=== PATIENT | female | born 1950 | race Caucasian/White ===

== ENCOUNTER 2019-08-10 12:09 | Inpatient (IN) | payer MEDICARE ==
[~2019-08-10] VITALS: Ht 162.6 cm; Wt 70.8 kg
[2019-08-10 12:00] VITALS: BP 110/58
[2019-08-10] MEDS ORDERED: BUPROPION HCL75 MG PO (12:55)
[2019-08-10] MEDS ORDERED: AUGMENTIN 875-11 TAB PO (12:55)
[2019-08-10] MEDS ORDERED: MOBIC7.5 MG PO (12:56)
[2019-08-10 13:16] VITALS: BP 110/58; BMI 25.8
[2019-08-10 13:28] LABS: CALC OSMOLALITY 265 mosm/kg (275-300); CALCIUM 8.6 mg/dL (8.5-10.1); CARBON DIOXIDE 24.5 mmol/L (21.0-32.0); CHLORIDE - SERUM 100 mmol/L (98-107); CREATININE - SERUM 0.7 mg/dL (0.6-1.3); GLUCOSE 100 mg/dL (74-106); POTASSIUM - SERUM 4.4 mmol/L (3.5-5.1); SODIUM 134 mmol/L (136-145); UREA NITROGEN 7 mg/dL (7-18); eGFR NON AFRICAN AMERICAN 88 mL/min (90-120)
[2019-08-10 13:34] LABS: ALBUMIN 2.4 g/dL (3.4-5.0); ALKALINE PHOSPHATASE 88 U/L (30-120); ALT (SGPT) 18 U/L (10-68); BILIRUBIN - TOTAL 0.31 mg/dL (0.2-1.3); PROTEIN - SERUM 6.2 g/dL (6.4-8.2)
[2019-08-10 13:44] LABS: HEMATOCRIT 32.2 % (36.0-48.0); HEMOGLOBIN 10.3 g/dL (12-16); MCH 30.6 pg (26.0-34.0); MCV 95.5 fL (80.0-100.0); PLATELET COUNT 502 10x3/uL (130-400); RBC 3.37 10x6/uL (4.00-5.40); RDW 14.5 % (11.5-14.5); WBC 26.1 10x3/uL (4.8-10.8)
[2019-08-10 14:34] LABS: LYMPHOCYTES 13 % (15-50); MONOCYTES 10 % (2-11); NEUTROPHILS 77 % (40-80); PLATELET ESTIMATE INCREASED
[2019-08-10 16:00] VITALS: BP 109/38
[2019-08-10 18:01] LABS: % SATURATION 7 % (15-55); IRON 13 ug/dl (35-150); TOTAL IRON BIND CAPACITY 164 ug/dl (260-445); UNSAT IRON BIND CAPACITY 151 ug/dl (150-375)
[2019-08-10 18:35] LABS: BILIRUBIN NEGATIVE (NEGATIVE); GLUCOSE NEGATIVE (NEGATIVE); KETONE NEGATIVE (NEGATIVE); NITRITE NEGATIVE (NEGATIVE); SPECIFIC GRAVITY 1.005 (1.005-1.020); UROBILINOGEN NORMAL (NORMAL)
[2019-08-10 18:37] LABS: BACTERIA FEW /hpf (NEGATIVE); RED CELLS - URINE RARE /hpf (0-5); WHITE CELLS - URINE 0-5 /hpf (NEGATIVE)
[2019-08-10 20:00] VITALS: BP 109/61
--- NOTE | 2019-08-10 20:00 | NUR ---
PATIENT IN BED WITH EYES OPEN. NO S/S OF ACUTE DISTRESS. NO C/O AT THIS TIME. PATIENT HAS A LEFT FOREARM, NORMAL SALINE @ 20 ML/HR. IV IS PATENT WITHOUT REDNESS, SWELLING, OR TENDERNESS. PATIENT IS WEAK AND NEEDS ASSISTANCE GETTING UP OUT OF BED, BUT CAN WALK WITH STANDBY ASSIST. PATIENT A RED SPOT ON RIGHT LEG BEHIND KNEE. PATIENT IS STANDBY ASSIST TO THE BATHROOM. CALL LIGHT WITHIN REACH. WILL CONTINUE TO MONITOR.
--- NOTE | 2019-08-11 02:12 | NUR ---
I have reviewed this patient and I concur with the Shift Assessment completed by the Licensed Practical Nurse today this shift.
[2019-08-11 04:00] VITALS: BP 96/41
[2019-08-11 07:13] LABS: HEMATOCRIT 30.2 % (36.0-48.0); HEMOGLOBIN 9.5 g/dL (12-16); MCH 30.1 pg (26.0-34.0); MCHC 31.5 g/dL (31.0-37.0); MCV 95.6 fL (80.0-100.0); MEAN PLATELET VOLUME 8.9 fL (7.4-10.4); PLATELET COUNT 479 10x3/uL (130-400); RBC 3.16 10x6/uL (4.00-5.40); RDW 14.4 % (11.5-14.5)
[2019-08-11 07:31] LABS: CALC OSMOLALITY 271 mosm/kg (275-300); CALCIUM 8.6 mg/dL (8.5-10.1); CARBON DIOXIDE 25.7 mmol/L (21.0-32.0); CHLORIDE - SERUM 104 mmol/L (98-107); CREATININE - SERUM 0.6 mg/dL (0.6-1.3); GLUCOSE 106 mg/dL (74-106); MAGNESIUM - SERUM 1.9 mg/dL (1.8-2.4); PHOSPHOROUS 2.8 mg/dL (2.5-4.9); SODIUM 137 mmol/L (136-145); THYROID STIMULATING HORMONE 0.82 uIU/mL (0.36-3.74); UREA NITROGEN 6 mg/dL (7-18); eGFR NON AFRICAN AMERICAN > 90 mL/min (90-120)
[2019-08-11 07:37] LABS: POTASSIUM - SERUM 3.7 mmol/L (3.5-5.1)
[2019-08-11 08:00] VITALS: BP 115/59
[2019-08-11 09:31] LABS: HYPOCHROMASIA OCC; LYMPHOCYTES 12 % (15-50); MONOCYTES 9 % (2-11); NEUTROPHILS 79 % (40-80); PLATELET ESTIMATE INCREASED; ROULEAUX OCC
--- NOTE | 2019-08-11 09:44 | NUR ---
PT SUPINE IN BED UPON ENTERING. ALERT AND ORIENTED X4. MEDICATION GIVEN AT THIS TIME, NO DIFFICULTIES. ASSESSMENT PERFORMED. PT DENIES ANY NEEDS. BED IN LOWEST POSITION, BED RAILS X2, CALL LIGHT WITHIN REACH. WILL CONTINUE TO MONITOR.
--- NOTE | 2019-08-11 11:20 | NUR ---
REMOVED IF FROM RIGHT WRIST DUE TO INFILTRATION. DC WIT HCATHETER TIP INTACT, TOLERATED WELL. COVERED SITE WITH 2X2'S AND TAPE. FAMILY AT BEDSIDE. DENIES ANY NEEDS. WILL RESITE IV. WILL CONTINUE TO MONITOR.
[2019-08-11 12:00] VITALS: BP 104/61
--- NOTE | 2019-08-11 14:33 | NUR ---
2 ATTEMPTS AT RESTARTING IV, UNSUCCESSFUL. WILL HAVE ANOTHER NURSE MAKE AN ATTEMPT. NO IV MEDICATIONS UNTIL 1700. RESTING COMFORTABLY IN BED, DENIES ANY NEEDS. WILL CONTINUE TO MONITOR.
--- NOTE | 2019-08-11 15:46 | NUR ---
MCKENZIE FELIX, STARTED NEW IV TO THE LEFT FOREARM, FLUIDS RUNNING.
[2019-08-11 16:00] VITALS: BP 109/44
--- NOTE | 2019-08-11 17:11 | NUR ---
HUNG IV ANTIBIOTICS, PRN TYLENOL FOR FEVER AND PRN MORPHINE FOR PAIN IN LEG AND BACK. PT IS RESTING COMFORTABLY IN BED. WILL SPIKE AND RUN IRON WHEN ABX IS COMPLETE. PT DENIES ANY NEEDS AT THIS TIME. BED IN LOWEST POSITION, BED RAILS X2, CALL LIGHT WITHIN REACH. WILL CONTINUE TO MONITOR.
--- NOTE | 2019-08-11 17:40 | NUR ---
I have reviewed this patient and I concur with the Shift Assessment completed by the Licensed Practical Nurse today this shift.
[2019-08-11 20:00] VITALS: BP 105/50
--- NOTE | 2019-08-11 20:00 | NUR ---
PATIENT RESTING IN BED WATCHING TV. NO ACUTE S/S OF DISTRESS. NO C/O AT THIS TIME. PATIENT HAS A LEFT FOREARM NORMAL SALINE @ 75 ML/HR. IV IS PATENT WITHOUT REDNESS, SWELLING, OR TENDERNESS. PATIENT HAS A REDENED AREA ON THE BACK OF THE RIGHT LEG. PATIENT STATES THAT "I FEEL MUCH BETTER THAN I DID YESTERDAY." PATIENT IS UP ADLIB TO THE BATHROOM. CALL LIGHT WITHIN REACH. WILL CONTINUE TO MONITOR.
--- NOTE | 2019-08-12 00:09 | NUR ---
I have reviewed this patient and I concur with the Shift Assessment completed by the Licensed Practical Nurse today this shift.
[2019-08-12 06:09] LABS: HAPTOGLOBIN 478 mg/dL (37-355)
[2019-08-12 06:53] LABS: BASOPHILS 0.1 % (0-2); EOSINOPHILS 0.5 % (0-7); HEMATOCRIT 29.3 % (36.0-48.0); HEMOGLOBIN 9.2 g/dL (12-16); IMMATURE GRANULOCYTES 0.8 % (0-5); LYMPHOCYTES 6.3 % (15-50); MCH 29.8 pg (26.0-34.0); MCHC 31.4 g/dL (31.0-37.0); MCV 94.8 fL (80.0-100.0); MEAN PLATELET VOLUME 8.8 fL (7.4-10.4); MONOCYTES 8.6 % (2-11); NEUTROPHILS 83.7 % (40-80); PLATELET COUNT 439 10x3/uL (130-400); RBC 3.09 10x6/uL (4.00-5.40); RDW 14.2 % (11.5-14.5); WBC 17.5 10x3/uL (4.8-10.8)
[2019-08-12 07:18] LABS: CALC OSMOLALITY 274 mosm/kg (275-300); CALCIUM 8.4 mg/dL (8.5-10.1); CARBON DIOXIDE 24.9 mmol/L (21.0-32.0); CHLORIDE - SERUM 106 mmol/L (98-107); CREATININE - SERUM 0.5 mg/dL (0.6-1.3); GLUCOSE 104 mg/dL (74-106); MAGNESIUM - SERUM 1.8 mg/dL (1.8-2.4); POTASSIUM - SERUM 3.5 mmol/L (3.5-5.1); SODIUM 139 mmol/L (136-145); eGFR NON AFRICAN AMERICAN > 90 mL/min (90-120)
[2019-08-12 07:20] LABS: UREA NITROGEN 4 mg/dL (7-18)
[2019-08-12 08:00] VITALS: BP 129/61
--- NOTE | 2019-08-12 09:18 | NUR ---
PT ALERT AND ORIENTED X4 UPON ENTERING. VITALS ASSESSED, VSS. MEDICATION GIVEN, NO DIFFICULTIES. PT RESTING COMFORTABLY DENIES ANY NEEDS. BED IN LOWEST POSITION, BED RAILS X2, CALL LIGHT WITHIN REACH. WILL CONTINUE TO MONITOR.
[2019-08-12 10:41] VITALS: BP 129/61; BP 96/47
--- NOTE | 2019-08-12 11:51 | NUR ---
ADMINISTERED PRN MORPHINE FOR COMPLAINT OF BACK/LEG PAIN. RESTING IN BED ON SIDE. DENIES ANY NEEDS. BED IN LOWEST POSITION, BED RAILS X2, CALL LIGHT WITHIN REACH. WILL CONTINUE TO MONITOR.
[2019-08-12 12:50] VITALS: BP 122/62
--- NOTE | 2019-08-12 16:19 | NUR ---
I have reviewed this patient and I concur with the Shift Assessment completed by the Licensed Practical Nurse today this shift.
--- NOTE | 2019-08-12 17:04 | NUR ---
ADMINISTERED MEDICATIONS, NO DIFFICULTIES. PRN TYLENOL FOR FEVER OF 102. PT REPORTS FEELING FINE, NO PAIN OR DISCOMFORT. VERY ASSYMPTOMATIC WITH FEVER. DENIES ANY OTHER NEEDS. WILL CONTINUE TO MONITOR.
[2019-08-12 17:25] VITALS: BP 118/68
[2019-08-12 20:00] VITALS: BP 147/78
--- NOTE | 2019-08-12 20:00 | NUR ---
PATIENT RESTING IN BED WITH AT BEDSIDE. MO S/S OF ACUTE DISTRESS. NO C/O AT THIS TIME. PATIENT HAS LEFT FOREARM, NORMAL SALINE @ 75 ML/HR. IV IS PATENT WITHOUT REDNESS, SWELLING, OR TENDERNESS. PATIENT HAS REDDENED AREA BEHIND THE RIGHT KNEE. PATIENT IS UP ADLIB TO THE BATHROOM. CALL LIGHT WITHIN REACH. WILL CONTINUE TO MONITOR.
[2019-08-13] VITALS: BP 133/66
--- NOTE | 2019-08-13 01:35 | NUR ---
I have reviewed this patient and I concur with the Shift Assessment completed by the Licensed Practical Nurse today this shift.
[2019-08-13 04:00] VITALS: BP 110/55
[2019-08-13 06:41] LABS: CALC OSMOLALITY 277 mosm/kg (275-300); CALCIUM 8.4 mg/dL (8.5-10.1); CARBON DIOXIDE 27.8 mmol/L (21.0-32.0); CHLORIDE - SERUM 107 mmol/L (98-107); CREATININE - SERUM 0.5 mg/dL (0.6-1.3); GLUCOSE 95 mg/dL (74-106); MAGNESIUM - SERUM 1.9 mg/dL (1.8-2.4); PHOSPHOROUS 3.1 mg/dL (2.5-4.9); SODIUM 141 mmol/L (136-145); UREA NITROGEN 4 mg/dL (7-18); eGFR NON AFRICAN AMERICAN > 90 mL/min (90-120)
[2019-08-13 06:46] LABS: POTASSIUM - SERUM 2.9 mmol/L (3.5-5.1)
[2019-08-13 06:52] LABS: BASOPHILS 0.1 % (0-2); EOSINOPHILS 0.8 % (0-7); HEMATOCRIT 29.6 % (36.0-48.0); HEMOGLOBIN 9.3 g/dL (12-16); IMMATURE GRANULOCYTES 0.6 % (0-5); LYMPHOCYTES 8.1 % (15-50); MCH 30.1 pg (26.0-34.0); MCHC 31.4 g/dL (31.0-37.0); MCV 95.8 fL (80.0-100.0); MEAN PLATELET VOLUME 9.1 fL (7.4-10.4); MONOCYTES 9.5 % (2-11); NEUTROPHILS 80.9 % (40-80); PLATELET COUNT 502 10x3/uL (130-400); RBC 3.09 10x6/uL (4.00-5.40); RDW 14.4 % (11.5-14.5); WBC 14.3 10x3/uL (4.8-10.8)
--- NOTE | 2019-08-13 08:00 | NUR ---
ALERT AND ORIENTED X4. RASH NOTED TO POSERIOR ASPECT OF RT. THIGH. MORPHINE GIVEN FOR INTERMITTANT PAIN 5/10 AND EFECTIVE. OV LEFT F/A WITH IVF INFUSING AT PRESCRIBED AT RATE WITH NO S/S OF INFECTION/INFILTRATION. POTASSIUM RELACED PER PROTOCOL. ENCOURAGED TO USE CALL LIGHT FOR ASSSIT.
[2019-08-13 08:02] VITALS: BP 103/52
[2019-08-13 12:16] VITALS: BP 116/68
[2019-08-13 16:24] VITALS: BP 128/67
[2019-08-13 20:00] VITALS: BP 116/61
[2019-08-14] VITALS: BP 111/60
[2019-08-14 04:00] VITALS: BP 134/64
[2019-08-14 05:54] LABS: BASOPHILS 0.1 % (0-2); EOSINOPHILS 1.3 % (0-7); HEMOGLOBIN 9.1 g/dL (12-16); IMMATURE GRANULOCYTES 1.2 % (0-5); LYMPHOCYTES 7.3 % (15-50); MCH 29.7 pg (26.0-34.0); MCHC 31.4 g/dL (31.0-37.0); MCV 94.8 fL (80.0-100.0); MEAN PLATELET VOLUME 9.2 fL (7.4-10.4); MONOCYTES 11.5 % (2-11); NEUTROPHILS 78.6 % (40-80); PLATELET COUNT 563 10x3/uL (130-400); RBC 3.06 10x6/uL (4.00-5.40); RDW 14.2 % (11.5-14.5); WBC 14.1 10x3/uL (4.8-10.8)
[2019-08-14 05:58] LABS: CALC OSMOLALITY 275 mosm/kg (275-300); CALCIUM 8.7 mg/dL (8.5-10.1); CARBON DIOXIDE 27.1 mmol/L (21.0-32.0); CHLORIDE - SERUM 106 mmol/L (98-107); CREATININE - SERUM 0.6 mg/dL (0.6-1.3); GLUCOSE 100 mg/dL (74-106); MAGNESIUM - SERUM 1.8 mg/dL (1.8-2.4); PHOSPHOROUS 3.1 mg/dL (2.5-4.9); SODIUM 140 mmol/L (136-145); UREA NITROGEN 3 mg/dL (7-18); eGFR NON AFRICAN AMERICAN > 90 mL/min (90-120)
[2019-08-14 06:17] LABS: POTASSIUM - SERUM 3.5 mmol/L (3.5-5.1)
--- NOTE | 2019-08-14 07:10 | NUR ---
REC'D IN BED AWAKE AND ALERT. RESP EVEN AND UNLABORED WITH NO DISTRESS NOTED. CAN EXPRESS NEEDS AND WANTS. NO C/O NOTED OR VOICED. ASSESSMENT COMPLETED. IV NOTED TO L FOREARM WTH NS INFUSING AT 75. BED IN LOWEST POSITION. C/L IN REACH AT BEDSIDE.
[2019-08-14 08:25] VITALS: BP 127/61
[2019-08-14 12:17] VITALS: BP 112/60
[2019-08-14 13:09] LABS: EHRLICHIA CHAFF IGG Negative (Neg:<1:64); EHRLICHIA CHAFF IGM Negative (Neg:<1:20); HGE IGG TITER Negative (Neg:<1:64); HGE IGM TITER Negative (Neg:<1:20)
[2019-08-14 14:50] VITALS: BMI 26.7
[2019-08-14 16:59] VITALS: BP 134/69
--- NOTE | 2019-08-14 18:49 | NUR ---
I have reviewed this patient and I concur with the Shift Assessment completed by the Licensed Practical Nurse today this shift.
[2019-08-14 20:38] VITALS: BP 134/71
[2019-08-15] VITALS: BP 139/61
--- NOTE | 2019-08-15 01:48 | NUR ---
1930) REC'D IN BED SUPINE POSITION DENIES ANY COMPLAINTS OTHER THAN ROOM CLEANED TRAY TAKEN OUT. WILL CONTINUE TO MONITOR FOR ANY CHGES IN NEUROVASCULAR STATUS LEFT FOREARM AND FOLLOW CURRENT PLAN OF CARE. AT BEDSIDE.
[2019-08-15 03:07] LABS: RMSF IGM 0.55 index (0.00-0.89)
[2019-08-15 04:48] VITALS: BP 138/71
[2019-08-15 05:05] LABS: BASOPHILS 0.2 % (0-2); EOSINOPHILS 1.8 % (0-7); HEMATOCRIT 30.1 % (36.0-48.0); HEMOGLOBIN 9.4 g/dL (12-16); IMMATURE GRANULOCYTES 1.6 % (0-5); LYMPHOCYTES 7.8 % (15-50); MCH 29.7 pg (26.0-34.0); MCHC 31.2 g/dL (31.0-37.0); MCV 95.3 fL (80.0-100.0); MONOCYTES 9.5 % (2-11); NEUTROPHILS 79.1 % (40-80); PLATELET COUNT 562 10x3/uL (130-400); RBC 3.16 10x6/uL (4.00-5.40); RDW 14.2 % (11.5-14.5); WBC 11.9 10x3/uL (4.8-10.8)
[2019-08-15 05:29] LABS: CALC OSMOLALITY 277 mosm/kg (275-300); CALCIUM 8.6 mg/dL (8.5-10.1); CARBON DIOXIDE 29.4 mmol/L (21.0-32.0); CHLORIDE - SERUM 105 mmol/L (98-107); GLUCOSE 95 mg/dL (74-106); MAGNESIUM - SERUM 1.9 mg/dL (1.8-2.4); PHOSPHOROUS 3.4 mg/dL (2.5-4.9); POTASSIUM - SERUM 3.7 mmol/L (3.5-5.1); SODIUM 141 mmol/L (136-145); UREA NITROGEN 3 mg/dL (7-18); eGFR NON AFRICAN AMERICAN 75 mL/min (90-120)
[2019-08-15 05:34] LABS: CREATININE - SERUM 0.8 mg/dL (0.6-1.3)
[2019-08-15 08:28] VITALS: BP 133/69
[2019-08-15 12:49] VITALS: BP 117/55
--- NOTE | 2019-08-15 14:40 | MORECARE ---
CASE MANAGEMENT DISCHARGE SUMMARY PATIENT: ANALIA MAYNARD SAIDA UNIT: [id number] ADM DATE: 08/10/19 AGE: 69 : 50 SEX: F ROOM/BED: D.2234 AUTHOR: MARE TREVINO PHYSICIAN: REFERRING PHYSICIAN: GARY PITT MD DATE OF SERVICE: 08/15/19 Discharge Plan Patient Name: ANALIA MAYNARD [facility] [facility] 1950 Planned Disposition: Home Anticipated Discharge Date: Discharge Date: Expected LOS: Initial Reviewer: [email or web address] Initial Review Date: 08/15/2019 Generated: 08/15/19 3:40 pm DCPIA - Discharge Planning Initial Assessment Updated by [email or web address]: Yesenia Pompa on 08/15/19 2:35 pm * Is the patient Alert and Oriented? Yes * PCP MULLINEX * Pharmacy [facility] * Preadmission Environment Home with Family * ADLs Independent * Other Equipment WALKER * Community resources currently utilized None * Additional services required to return to the preadmission environment? No * Can the patient safely return to the preadmission environment? Yes * Has this patient been hospitalized within the prior 30 days at any hospital? No Patient Name: ANALIA MAYNARD Page [id number] at 1440 All edits/amendments must be made on the electronic document DICTATION DATE: 08/15/19 1440 ADOBE CQ DEVELOPER: MANJU 08/15/19 1440 RPT#: [id number] DC DATE: STATUS: ADM IN [facility] [address] [place] [address] END OF REPORT
--- NOTE | 2019-08-15 14:48 | MORECARE ---
CASE MANAGEMENT DISCHARGE SUMMARY PATIENT: ANALIA MAYNARD SAIDA UNIT: [id number] ADM DATE: 08/10/19 AGE: 69 : 50 SEX: F ROOM/BED: D.2234 AUTHOR: MARE TREVINO PHYSICIAN: REFERRING PHYSICIAN: GARY PITT MD DATE OF SERVICE: 08/15/19 Discharge Plan Patient Name: ANALIA MAYNARD Facility: [facility]:[place] : 1950 Planned Disposition: Home Anticipated Discharge Date: Discharge Date: Expected LOS: Initial Reviewer: [email or web address] Initial Review Date: 08/15/2019 Generated: 08/15/19 3:48 pm Comments DCP- Discharge Planning Updated by [id number]: Yesenia Pompa on 08/15/19 1:[address] Patient Name: ANALIA MAYNARD Admission Status: Urgent Accout number: [id number] Admission Date: 08-10-2019 : 1950 Admission Diagnosis: Attending: STACIA Current LOS: 5 Anticipated DC Date: Planned Disposition: Home Primary Insurance: [facility] MEDICARE SOLUTIONS Discharge Planning Comments: CM met with patient at bedside after explaining CM role and obtaining verbal consent. CM discussed availability / needs of home health, REHAB and medical equipment. PATIENT DENIES ANY DISCHARGE NEEDS. PLANS TO DC TO HOME WITH WHEN SHE IS BETTER. Spd Manager: Yesenia Pompa DCPIA - Discharge Planning Initial Assessment Updated by [id number]: Yesenia Pompa on 08/15/19 2:35 pm * Is the patient Alert and Oriented? Yes * PCP MULLINEX * Pharmacy [facility] * Preadmission Environment Home with Family * ADLs Independent * Other Equipment WALKER * Community resources currently utilized None * Additional services required to return to the preadmission environment? No * Can the patient safely return to the preadmission environment? Yes * Has this patient been hospitalized within the prior 30 days at any hospital? No Last DP export: 08/15/19 1:40 pm Patient Name: ANALIA MAYNARD Page [phone] at 1448 All edits/amendments must be made on the electronic document DICTATION DATE: 08/15/191447 SCRAPE GATHERER: DM 08/15/191447 RPT#: [id number] DC DATE: STATUS: ADM IN [facility] [address] [place] [address] END OF REPORT
[2019-08-15 16:00] VITALS: BP 120/59
[2019-08-15 18:08] VITALS: Ht 162.6 cm; Wt 70.8 kg
[2019-08-15 21:15] VITALS: BP 114/50
--- NOTE | 2019-08-15 22:45 | NUR ---
REC'D. WALKING ROUNDS CHGE OF SHIFT.COMING FROM BATH ROOM. AT BEDSIDE.DENIES ANY DISCOMFORT AT PRESENT TIME WILL CONTINUE TO MONITOR FOR ANY CHGES AND FOLLOW CURRENT PLAN OF CARE.
[2019-08-16 00:32] VITALS: BP 115/41
--- NOTE | 2019-08-16 03:25 | NUR ---
I have reviewed this patient and I concur with the Shift Assessment completed by the Licensed Practical Nurse today this shift.
[2019-08-16 04:23] LABS: BASOPHILS 0.2 % (0-2); EOSINOPHILS 1.8 % (0-7); HEMATOCRIT 29.7 % (36.0-48.0); HEMOGLOBIN 9.1 g/dL (12-16); IMMATURE GRANULOCYTES 2.1 % (0-5); LYMPHOCYTES 6.5 % (15-50); MCH 29.7 pg (26.0-34.0); MCHC 30.6 g/dL (31.0-37.0); MCV 97.1 fL (80.0-100.0); MEAN PLATELET VOLUME 9.2 fL (7.4-10.4); NEUTROPHILS 79.4 % (40-80); PLATELET COUNT 619 10x3/uL (130-400); RBC 3.06 10x6/uL (4.00-5.40); RDW 14.5 % (11.5-14.5); WBC 11.9 10x3/uL (4.8-10.8)
[2019-08-16 04:44] LABS: ALBUMIN 1.9 g/dL (3.4-5.0); ALKALINE PHOSPHATASE 85 U/L (30-120); ALT (SGPT) 19 U/L (10-68); BILIRUBIN - TOTAL 0.19 mg/dL (0.2-1.3); CALC OSMOLALITY 281 mosm/kg (275-300); CALCIUM 8.6 mg/dL (8.5-10.1); CARBON DIOXIDE 27.9 mmol/L (21.0-32.0); CHLORIDE - SERUM 108 mmol/L (98-107); CREATININE - SERUM 0.8 mg/dL (0.6-1.3); GLUCOSE 100 mg/dL (74-106); POTASSIUM - SERUM 3.8 mmol/L (3.5-5.1); PROTEIN - SERUM 6.1 g/dL (6.4-8.2); SODIUM 143 mmol/L (136-145); UREA NITROGEN 5 mg/dL (7-18); VANCOMYCIN - TROUGH 26.3 ug/mL (10.0-20.0); eGFR NON AFRICAN AMERICAN 75 mL/min (90-120)
--- NOTE | 2019-08-16 06:07 | NUR ---
2969) NURSE STATES PATIENT IN 2233 SCREAMING YOUR NAME OUT LOUD SAYING TAKE IT OUT.ENTERED ROOM SAYS AGAIN TAKE IT OUT INSTRUCTED TO SIT AND LET ME SEE YOUR ARM CONTINUES TO SCREAM.INSTRUCTED BREATH THRU YOUR NOSE OUT THRU MOUTH. RAN FROM BATHRM DOOR TO SINK INSTRUCTED I NEED YOU TO SETTLE DOWN SO I CAN SE WHAT THE PROBLEM IS.STATES DO WHAT I SAY OR I'LL CALL YOUR RING SEWER INSTRUCTED FILL FREE TO DO SO.I STILL NEED TO LOOK AT YOUR IV SITE.INFILTRATED IV TAKEN OUT. WHY ARE THEY HAVING TO RESTART MY IV TWO OR THREE TIMES A WEEK.INSTRUCTED IV IRON IS HARD ON THE VEINS
[2019-08-16 06:22] VITALS: BP 134/69
--- NOTE | 2019-08-16 07:32 | NUR ---
SLEEPING ON RIGHT SIDE,WITHOUT DISTRESS.
--- NOTE | 2019-08-16 08:09 | NUR ---
REC'D IN WALKING ROUNDS AWAKE AND ALERT. RESP EVEN AND UNLABORED WTIH NO DISTRESS NOTED. CAN EXPRESS NEEDS AND WANTS WITH NONE VOICED AT THIS TIME. PT HAS NO IV ACCESS D/T VEINS CONTINUE TO BLOW. WILL CONSULT WITH MD ABOUT STARTING PO MEDICATION OR GETTING CENTRAL/PICC LINE STARTED. ASSESSMENT COMPLETED. C/L IN REACH A BEDSIDE.
[2019-08-16 08:17] VITALS: BP 105/34
[2019-08-16 13:05] VITALS: BP 122/68
--- NOTE | 2019-08-16 13:36 | NUR ---
Nutrition follow-up: Pt receiving a regular diet. PO intake ~50% of meals Labs reviewed Wt: 156# +BM PO intake is fair at this time. Will continue to provide food choices and encourage increased po intake. RDN following.
[2019-08-16 17:10] VITALS: BP 101/60
[2019-08-16 20:00] VITALS: BP 130/46
[2019-08-17] VITALS: BP 124/64
--- NOTE | 2019-08-17 03:26 | NUR ---
I have reviewed this patient and I concur with the Shift Assessment completed by the Licensed Practical Nurse today this shift.
[2019-08-17 04:00] VITALS: BP 118/43
[2019-08-17 06:04] LABS: ALBUMIN 2.1 g/dL (3.4-5.0); ANION GAP 10.1 mmol/L (8-16); BILIRUBIN - TOTAL 0.19 mg/dL (0.2-1.3); CALCIUM 8.6 mg/dL (8.5-10.1); CARBON DIOXIDE 28.4 mmol/L (21.0-32.0); CREATININE - SERUM 0.9 mg/dL (0.6-1.3); POTASSIUM - SERUM 3.5 mmol/L (3.5-5.1); PROTEIN - SERUM 6.3 g/dL (6.4-8.2)
[2019-08-17 06:11] LABS: HEMOGLOBIN 9.6 g/dL (12-16); LYMPHOCYTES 9.5 % (15-50); MCH 30.5 pg (26.0-34.0); MCV 95.2 fL (80.0-100.0); MEAN PLATELET VOLUME 9.6 fL (7.4-10.4); NEUTROPHILS 80.8 % (40-80); PLATELET COUNT 644 10x3/uL (130-400); RBC 3.15 10x6/uL (4.00-5.40); RDW 14.4 % (11.5-14.5); WBC 11.6 10x3/uL (4.8-10.8)
--- NOTE | 2019-08-17 07:15 | NUR ---
REC'D IN BED AWAKE AND ALERT. RESP EVEN AND UNLABORED WITH NO DISTRESS NOTED OR VOICED. CAN EXPRESS NEEDS AND WANTS. ASSESSMENT COMPLETED. UP AB FRANCISCO. DENIES ANY PAIN OR DISCOMFORT. C/L IN REACH AT BEDSIDE.
[2019-08-17 08:19] VITALS: BP 131/57
[2019-08-17 12:27] VITALS: BP 130/60
--- NOTE | 2019-08-17 12:39 | NUR ---
PATIENT IS WITHOUT DISTRESS. CALL LIGHT IN REACH
[2019-08-17] MEDS ORDERED: FLORAJEN3 CAPS460 MG PO (13:31)
[2019-08-17] MEDS ORDERED: BACTRIM DS TAB1 EAC1 PO (13:31)
[2019-08-17] MEDS ORDERED: PROTONIX40 MG PO (13:31)
[2019-08-17] MEDS ORDERED: FERROUS SULFAT325 MG PO (13:32)
--- NOTE | 2019-08-17 15:43 | NUR ---
DC HOME AT THIS TIME VOICE UNDERSTANDING OF DC INSTRUCTION. IV DC. STABLE CONDITION UPON DEPARTURE.
--- NOTE | 2019-08-18 08:49 | MORECARE ---
CASE MANAGEMENT DISCHARGE SUMMARY PATIENT: ANALIA MAYNARD UNIT: [id number] ADM DATE: 08/10/19 AGE: 69 : 50 SEX: F ROOM/BED: D.2234 AUTHOR: BELINDA,DOC PHYSICIAN: REFERRING PHYSICIAN: GARY PITT MD DATE OF SERVICE: 08/18/19 Discharge Plan Patient Name: ANALIA MAYNARD Facility[facility]:[place] : 1950 Planned Disposition: Home Anticipated Discharge Date: Discharge Date: 08/17/2019 Expected LOS: Initial Reviewer: [email or web address] Initial Review Date: 08/15/2019 Generated: 08/18/19 9:49 am DCP- Discharge Planning Updated by [email or web address]: Yesenia Pompa on 08/15/19 1:[address] Patient Name: ANALIA MAYNARD Admission Status: Urgent Accout number: [id number] Admission Date: 08-10-2019 : 1950 Admission Diagnosis: Attending: STACIA Current LOS: 5 Anticipated DC Date: Planned Disposition: Home Primary Insurance: [facility] MEDICARE SOLUTIONS Discharge Planning Comments: CM met with patient at bedside after explaining CM role and obtaining verbal consent. CM discussed availability / needs of home health, REHAB and medical equipment. PATIENT DENIES ANY DISCHARGE NEEDS. PLANS TO DC TO HOME WITH WHEN SHE IS BETTER. Thermometer Tester: Yesenia Pompa DCPIA - Discharge Planning Initial Assessment Updated by [id number]: Yesenia Pompa on 08/15/19 2:35 pm * Is the patient Alert and Oriented? Yes * PCP RONNYLINEX * Pharmacy [facility] * Preadmission Environment Home with Family * ADLs Independent * Other Equipment WALKER * Community resources currently utilized None * Additional services required to return to the preadmission environment? No * Can the patient safely return to the preadmission environment? Yes * Has this patient been hospitalized within the prior 30 days at any hospital? No Coverage Notice Reviewer: [id number] - Yesenia Pompa Notice Issued Date-Time: 08/17/2019 14:39 Notice Type: IM Discharge Notice Notice Delivered To: Patient Relationship to Patient: [employer]ed [employer] Plasma Etcher Name: Delivery Method: HAND - Hand Delivered Conchita Days: Prior Verbal Notification: Recipient Understood Notice: Yes Recipient Signature: Yes Med Rec Note Co-signed by Attending: Coverage Notice Comment: Last DP export: 08/15/19 1:48 pm Patient Name: ANALIA MAYNARD Page [phone] at 0849 All edits/amendments must be made on the electronic document DICTATION DATE: 08/18/1949 SEAM STAY STITCHER: MANJU 08/18/19 0849 RPT#: [id number] DC DATE:08/17/19 STATUS: DIS IN [facility] [address] [place] [address] END OF REPORT
[2019-08-21 09:08] LABS: F. TULARENSIS - IGG Negative (Negative); F. TULARENSIS - IGM Negative (Negative)
== END 2019-08-17 16:02 | disposition home or self-care (01) | DRG 603 ==
LOC: D.MS 12:09
PROVIDERS: Family Medicine; Internal Medicine Hematology & Oncology; ADMIT Family Medicine; ATTEND Family Medicine
DX: L03.115 Cellulitis of right lower limb (principal); D84.8 Other specified immunodeficiencies; F33.1 Major depressive disorder, recurrent, moderate; D69.6 Thrombocytopenia, unspecified; M45.9 Ankylosing spondylitis of unspecified sites in spine; G89.29 Other chronic pain; M54.9 Dorsalgia, unspecified; D50.9 Iron deficiency anemia, unspecified; Z87.891 Personal history of nicotine dependence

== ENCOUNTER 2019-08-20 22:33 | Emergency (ER) | payer MEDICARE ==
[~2019-08-20] VITALS: Ht 162.6 cm; Wt 68.2 kg
[~2019-08-20 22:33] MED LIST: AUGMENTIN 875-11 TAB PO; BACTRIM DS TAB1 EAC1 PO; BUPROPION HCL75 MG PO; FERROUS SULFAT325 MG PO; FLORAJEN3 CAPS460 MG PO; MOBIC7.5 MG PO; PROTONIX40 MG PO
[2019-08-20 22:39] VITALS: Ht 162.6 cm; Wt 68.2 kg
[2019-08-20] MEDS ORDERED: DOXYCYCLINE HY100 M2 PO (22:41)
[2019-08-21 00:07] VITALS: BP 125/77
== END 2019-08-21 00:08 | disposition home or self-care (01) ==
LOC: D.ER 22:33
DX: T80.1XXA Vascular complications following infusion, transfusion and therapeutic injection, initial encounter (principal)

== ENCOUNTER → 2019-09-21 14:03 | Outpatient (CLI) | payer MEDICARE ==
[2019-08-20 22:39] VITALS: BMI 25.8
[~2019-09-21 14:03] MED LIST changes: +DOXYCYCLINE HY100 M2 PO
== END | disposition home or self-care (01) ==
LOC: D.US 14:03
PROVIDERS: ATTEND Family Medicine
DX: M79.605 Pain in left leg (principal)

== ENCOUNTER 2019-10-02 19:52 | Inpatient (IN) | payer MEDICARE ==
[~2019-10-02] VITALS: Ht 162.6 cm; Wt 65.5 kg
--- NOTE | ~2019-10-02 | HEMODYNAMI ---
PATIENT:ANALIA MAYNARD MEDICAL RECORD: [id number] : 50 LOCATION:[id number] ADMISSION DATE: 10/02/19 Generatedon:10/06/201914:21 Patient name: ANALIA MAYNARD Patient #: [id number] SSN: : 1950 Date of study: 10/06/2019 Page: Of Hemodynamic Procedure Report Patient Data Patient Demographics Procedure consent was obtained First Name: ANALIA Gender: Female Last Name: ALEYDA : 1950 [facility] Initial: SAIDA Age: 69 year(s) Patient #: [id number] Race: Unknown Additional ID: [id number] Contact details Address: [address] [place] [address] RO[address] State: [place] City: [facility] Zip code: [address] Past Medical History Allergies Allergen Reaction Date Comments Reported Sulfa drugs 10/06/2019 Vicodin 10/06/2019 Sulfa drugs 10/06/2019 Admission Admission Data Admission Date: 10/02/2019 Admission Time: 23:29 Room #: D.2235 Procedure Procedure Types Cath Procedure Peripheral Cath Diagnostic Procedure PICC PICC Line Placement Procedure Description Procedure Date Procedure Date: 10/06/2019 Procedure Start Time: 14:16 Procedure Staff Name Function Shorty Lima MD Performing Physician VENUS JONES RT Monitor Clayton Pedroza RT Scrub Kallie Nichole RN Nurse Jolie HATCH RN Nurse Procedure Data Cath Procedure Fluoroscopy Diagnostic fluoroscopy Total fluoroscopy Time: 0.1 time: 0.1 min min Diagnostic fluoroscopy Total fluoroscopy dose: 2 dose: 2 mGy mGy Hemodynamics Rest Pre Cath Intra NCS Post Cath Procedure Log Time Note 13:48:55 Use device set IR Diagnostic 13:48:56 Bag Decanter () opened to sterile field. 13:48:56 Sterile Angiographic Pack opened to sterile field. 13:48:56 Tegaderm 4 x 4 (1626W) opened to sterile field. 13:49:01 PowerPICC 5Fr double lumen catheter opened to sterile field. 13:49:07 - 14:06:46 Jolie HATCH RN sent for patient. Start room use. 14:06:48 Time tracking: Regular hours (M-F 7:00 - 5:00) 14:06:58 Patient received from Med/Surg to IR Alert and oriented. Tansferred to table in Supine position. 14:06:59 Signed procedure consent form obtained from patient. 14:07:00 Warm blankets applied, and maria alejandra hugger turned on for patient comfort. 14:07:02 Correct patient and procedure confirmed by team. 14:07:03 - 14:07:09 H&P Date Dictated: 10/06/2019 Within 30 days and on chart.. 14:07:11 Pre-procedure instructions explained to patient. 14:07:18 Patient allergic to Sulfa drugs 14:07:22 Is patient on blood thinner?No 14:07:36 Patient diabetic? No. 14:07:38 - 14:07:54 Patient allergic to Vicodin 14:07:58 Patient allergic to Sulfa drugs 14:08:03 - 14:08:14 Right Arm was prepped with chlora-prep and draped in sterile fashion. 14:08:16 Alarms reviewed by RWilliam N. 14:08:16 Sharps counted by scrub and verified by R.N. 14:11:04 - 14:13:02 Physician arrived 14:13:03 --------ALL STOP TIME OUT------ 14:13:04 Final Timeout: patient, procedure, and site verified with staff and physician. All members of the team are in agreement. 14:13:08 Right Arm site verified by team. 14:16:30 Procedure started. 14:16:31 Full Disclosure recording started 14:17:15 Venous access obtained using ultrasound guidance. 14:17:19 PICC line was trimmed to 36cm and advanced to the superior vena cava.Position verified under fluoroscopy. 14:20:03 Procedure ended.(Physican Out) 14:20:10 Fluoroscopy time 00.10 minutes. 14:20:14 Fluoroscopy dose: 2 mGy 14:20:14 Flurop Dose total: 2 14:20:17 Sharps counted by scrub and verified by R.N. 14:20:25 Post-op/insertion site Right Subclavian vein dressed using a 4 x 4 and Tegaderm. 14:20:31 Procedure and supply charges have been captured, reviewed, submitted an d are correct. 14:21:01 Patient transfered to Med/Surg with Wheelchair. Device Usage Item Name Manufacture Quantity Catalog Hospital Part Current Minimal Lot# / Number Charge Number Stock Stock Serial# Code Bag Decanter Microtek 1 [id number] () [employer] Sterile Cardinal 1 [id number] 5 Angiographic Health Pack Tegaderm 4 x 3M 1 [id number] 5 4 (1626W) PowerPICC Bard 1 [id number] 5 5Fr double lumen catheter Signature Audit Happy Jack Stage Time Signature Unsigned Intra-Procedure 10/06/2019 VENUS JONES RT 2:21:11 PM (R) [place] [id number] [place] [address]
[2019-10-02 20:52] LABS: CALC OSMOLALITY 273 mosm/kg (275-300); CALCIUM 9.3 mg/dL (8.5-10.1); CARBON DIOXIDE 27.6 mmol/L (21.0-32.0); CHLORIDE - SERUM 103 mmol/L (98-107); CREATININE - SERUM 0.8 mg/dL (0.6-1.3); GLUCOSE 124 mg/dL (74-106); POTASSIUM - SERUM 4.4 mmol/L (3.5-5.1); SODIUM 136 mmol/L (136-145); UREA NITROGEN 14 mg/dL (7-18); eGFR NON AFRICAN AMERICAN 75 mL/min (90-120)
[2019-10-02 20:53] LABS: BASOPHILS 0.1 % (0-2); EOSINOPHILS 0.5 % (0-7); HEMATOCRIT 36.5 % (36.0-48.0); HEMOGLOBIN 11.5 g/dL (12-16); IMMATURE GRANULOCYTES 3.8 % (0-5); LYMPHOCYTES 9.6 % (15-50); MCH 30.3 pg (26.0-34.0); MCHC 31.5 g/dL (31.0-37.0); MCV 96.3 fL (80.0-100.0); PLATELET COUNT 573 10x3/uL (130-400); RBC 3.79 10x6/uL (4.00-5.40); RDW 15.4 % (11.5-14.5); WBC 14.3 10x3/uL (4.8-10.8)
[2019-10-02 21:06] LABS: ALBUMIN 2.5 g/dL (3.4-5.0); ALKALINE PHOSPHATASE 96 U/L (30-120); ALT (SGPT) 14 U/L (10-68); C-REACTIVE PROTEIN 17.5 mg/dL (0.0-0.9); PROTEIN - SERUM 7.3 g/dL (6.4-8.2)
[2019-10-02 21:18] VITALS: BP 140/56
--- NOTE | 2019-10-02 21:27 | NUR ---
URINE SPEC TO LAB
--- NOTE | 2019-10-02 21:33 | NUR ---
PT TO CT VIA WHEELCHAIR
[2019-10-02 21:48] LABS: BILIRUBIN NEGATIVE (NEGATIVE); GLUCOSE NEGATIVE (NEGATIVE); KETONE NEGATIVE (NEGATIVE); NITRITE NEGATIVE (NEGATIVE); UROBILINOGEN NORMAL (NORMAL)
[2019-10-02 21:56] LABS: ERYTHROCYTE SEDIMENTATION RATE 99 mm/hr (0-30)
[2019-10-02 23:06] VITALS: BP 134/53
[2019-10-03] VITALS (12 sets, daily range): BP systolic 95–122; BP diastolic 45–70; Ht 162.6 cm; Wt 65.5 kg
--- NOTE | 2019-10-03 00:15 | NUR ---
RECEIVED TO FLOOR ACCOMPANIED BY STAFF VIA [facility]. AT BEDSIDE. DENIES PAIN. AMBULATORY AD FRANCISCO. INFORMED OF NPO STATUS. NO NEEDS VOICED CACHORRO. CTM.
[2019-10-03] MEDS ORDERED: ASCORBIC ACID500 MG PO (00:17)
[2019-10-03] MEDS ORDERED: OMEGA-3100 MG PO (00:18)
[2019-10-03] MEDS ORDERED: VITAMIN D5000 UNI1 PO (00:18)
[2019-10-03] MEDS ORDERED: MAG-OX 400 MG400 MG PO (00:19)
--- NOTE | 2019-10-03 00:37 | NUR ---
ADMISSION ASSESSMENT COMPLETE.
[2019-10-03 05:18] LABS: BASOPHILS 0.2 % (0-2); EOSINOPHILS 0.6 % (0-7); HEMATOCRIT 32.9 % (36.0-48.0); HEMOGLOBIN 10.6 g/dL (12-16); IMMATURE GRANULOCYTES 2.5 % (0-5); INR 1.18 (0.85-1.17); LYMPHOCYTES 14.5 % (15-50); MCH 30.4 pg (26.0-34.0); MCHC 32.2 g/dL (31.0-37.0); MEAN PLATELET VOLUME 9.1 fL (7.4-10.4); MONOCYTES 8.8 % (2-11); NEUTROPHILS 73.4 % (40-80); PLATELET COUNT 532 10x3/uL (130-400); PROTIME 14.9 SECONDS (11.6-15.0); RBC 3.49 10x6/uL (4.00-5.40); RDW 15.4 % (11.5-14.5); WBC 11.6 10x3/uL (4.8-10.8)
[2019-10-03 05:19] LABS: APTT 38.8 SECONDS (22.8-39.4)
[2019-10-03 05:23] LABS: MCV 94.3 fL (80.0-100.0)
[2019-10-03 05:24] LABS: CALCIUM 9.1 mg/dL (8.5-10.1); CARBON DIOXIDE 25.4 mmol/L (21.0-32.0); CHLORIDE - SERUM 105 mmol/L (98-107); CREATININE - SERUM 0.7 mg/dL (0.6-1.3); GLUCOSE 103 mg/dL (74-106); PHOSPHOROUS 3.7 mg/dL (2.5-4.9); SODIUM 139 mmol/L (136-145); eGFR NON AFRICAN AMERICAN 88 mL/min (90-120)
[2019-10-03 05:30] LABS: CALC OSMOLALITY 275 mosm/kg (275-300); POTASSIUM - SERUM 3.7 mmol/L (3.5-5.1); UREA NITROGEN 8 mg/dL (7-18)
--- NOTE | 2019-10-03 11:12 | NUR ---
TO IR VIA BED.
--- NOTE | 2019-10-03 12:30 | NUR ---
BACK FROM IR DRAIN TO RLQ OF ABDOMEN NOTED WITH PINK TINTED AND BROWNISH DRAINAGE.PATIENT IS WITHOUT DISTRESS.MONITOR FOR NEEDS.
--- NOTE | 2019-10-03 20:00 | NUR ---
PT SITTING UP IN BED WITHOUT DISTRESS, AOX4. AT BEDSIDE. DRAIN TO RLQ. BROWN/PINK DRAINAGE. STATES PAIN 3/10 WHEN MOVING, NOTHING WHILE SITTING STILL. IV RIGHT FA INFUSING NS @ KVO. DENIES NEEDS AT THIS TIME. CL IN REACH, WILL CTM
[2019-10-04] VITALS: BP 117/54
[2019-10-04 04:00] VITALS: BP 113/49
[2019-10-04 05:45] LABS: BASOPHILS 0.1 % (0-2); HEMATOCRIT 34.1 % (36.0-48.0); HEMOGLOBIN 10.8 g/dL (12-16); IMMATURE GRANULOCYTES 1.5 % (0-5); LYMPHOCYTES 11.3 % (15-50); MCH 30.1 pg (26.0-34.0); MCHC 31.7 g/dL (31.0-37.0); MONOCYTES 8.5 % (2-11); NEUTROPHILS 77.6 % (40-80); PLATELET COUNT 493 10x3/uL (130-400); RBC 3.59 10x6/uL (4.00-5.40); RDW 15.3 % (11.5-14.5); WBC 10.5 10x3/uL (4.8-10.8)
[2019-10-04 06:20] LABS: CALC OSMOLALITY 273 mosm/kg (275-300); CALCIUM 9.2 mg/dL (8.5-10.1); CARBON DIOXIDE 26.2 mmol/L (21.0-32.0); CHLORIDE - SERUM 105 mmol/L (98-107); CREATININE - SERUM 0.8 mg/dL (0.6-1.3); GLUCOSE 102 mg/dL (74-106); MAGNESIUM - SERUM 2.1 mg/dL (1.8-2.4); PHOSPHOROUS 3.7 mg/dL (2.5-4.9); POTASSIUM - SERUM 3.8 mmol/L (3.5-5.1); SODIUM 138 mmol/L (136-145); UREA NITROGEN 7 mg/dL (7-18); eGFR NON AFRICAN AMERICAN 75 mL/min (90-120)
--- NOTE | 2019-10-04 09:00 | NUR ---
ASSESSMENT PER FLOW SHEET. PATIENT IS WITHOUT DISTRESS.DENIES NEEDS AT PRESENT. CALL LIGHT IN REACH
[2019-10-04 09:17] VITALS: BP 119/62
[2019-10-04 14:41] VITALS: BP 122/61
[2019-10-04 17:39] VITALS: BP 117/58
--- NOTE | 2019-10-04 18:11 | NUR ---
REMAINS WITHOUT DISTRESS. NO COMPLAINTS OF SEVERE PAIN,JUST SORENESS.HAS TOLERATED DIET TODAY. REMAINS WITHOUT NEEDS,CHNAGE. CONT PLAN OF CARE
[2019-10-04 20:00] VITALS: BP 101/54
--- NOTE | 2019-10-04 20:20 | NUR ---
LYING IN BED TALKING TO S.O. ALERT AND ORIENTED X4. RESP EVEN AND NONLABORED. NS @ 30 MLHR INFUSING IN RT FOREARM. BILI DRAIN NOTED TO RT ABD WITH PURULENT BLOODY/YELLOW DRAINAGE NOTED. RATES PAIN 1. SCDS OFF. ABD IS DISTENDED AND SOFT. BOWEL SOUNDS ARE ACTIVE X4 QUADS. AMB WITH ASSIST X1. SR ELEVATED X2. CL IN REACH.
[2019-10-05] VITALS: BP 127/58
--- NOTE | 2019-10-05 02:51 | NUR ---
ASSISTED UP TO BR TO VOID. NO DISTRESS.
[2019-10-05 04:00] VITALS: BP 148/66
[2019-10-05 04:36] LABS: BASOPHILS 0.2 % (0-2); EOSINOPHILS 1.2 % (0-7); HEMOGLOBIN 10.9 g/dL (12-16); IMMATURE GRANULOCYTES 1.4 % (0-5); LYMPHOCYTES 9.4 % (15-50); MCH 30.2 pg (26.0-34.0); MCHC 32.1 g/dL (31.0-37.0); MCV 94.2 fL (80.0-100.0); MEAN PLATELET VOLUME 8.9 fL (7.4-10.4); MONOCYTES 9.2 % (2-11); NEUTROPHILS 78.6 % (40-80); PLATELET COUNT 457 10x3/uL (130-400); RBC 3.61 10x6/uL (4.00-5.40); RDW 14.9 % (11.5-14.5); WBC 10.2 10x3/uL (4.8-10.8)
[2019-10-05 05:04] LABS: CALC OSMOLALITY 278 mosm/kg (275-300); CALCIUM 8.8 mg/dL (8.5-10.1); CARBON DIOXIDE 27.1 mmol/L (21.0-32.0); CHLORIDE - SERUM 107 mmol/L (98-107); CREATININE - SERUM 0.7 mg/dL (0.6-1.3); GLUCOSE 106 mg/dL (74-106); PHOSPHOROUS 2.7 mg/dL (2.5-4.9); POTASSIUM - SERUM 3.9 mmol/L (3.5-5.1); SODIUM 141 mmol/L (136-145); UREA NITROGEN 6 mg/dL (7-18); eGFR NON AFRICAN AMERICAN 88 mL/min (90-120)
--- NOTE | 2019-10-05 06:10 | NUR ---
LYING IN BED WATCHING TV. NO DISTRESS. DENIES NEEDS. CL IN REACH.
--- NOTE | 2019-10-05 07:38 | NUR ---
ALERT AND ORIENTED. LUNGS CLEAR BILATERALLY. HEART SOUNDS S1 AND S2 HEARD IN ALL BURR. BOWEL SOUNDS ACTIVE X 4. IV TO LFA PATENT WITHOUT REDNESS. DENIES NEEDS. BED LOW. CALL SIMPSON AND PERSONAL ITEMS IN REACH. WILL CONTINUE TO MONITOR.
[2019-10-05 09:03] VITALS: BP 125/62
--- NOTE | 2019-10-05 12:38 | NUR ---
SITTING IN BED EATING LUNCH. DENIES NEEDS. WILL CONTINUE TO MONITOR.
[2019-10-05 13:00] VITALS: BP 109/58
--- NOTE | 2019-10-05 13:47 | MORECARE ---
CASE MANAGEMENT DISCHARGE SUMMARY PATIENT: ANALIA MAYNARD SAIDA UNIT: [id number] ADM DATE: 10/02/19 AGE: 69 : 50 SEX: F ROOM/BED: D.2235 AUTHOR: MARE TREVINO PHYSICIAN: REFERRING PHYSICIAN: STEPHANIE PATTON MD DATE OF SERVICE: 10/05/19 Discharge Plan Patient Name: ANALIA MAYNARD [facility] [facility] 1950 Planned Disposition: Home with Home Health and Infusion Serv Anticipated Discharge Date: Discharge Date: Expected LOS: Initial Reviewer: [email or web address] Initial Review Date: 10/05/2019 Generated: 10/05/19 2:46 pm DCPIA - Discharge Planning Initial Assessment Updated by [id number]: Yesenia Pompa on 10/05/19 1:46 pm * Is the patient Alert and Oriented? Yes * PCP MULLINEX * Pharmacy [facility] * Preadmission Environment Home with Family * ADLs Independent * Community resources currently utilized None * Additional services required to return to the preadmission environment? Yes * Can the patient safely return to the preadmission environment? Yes * Has this patient been hospitalized within the prior 30 days at any hospital? No Patient Name: ANALIA MAYNARD Page 46986 at 1347 All edits/amendments must be made on the electronic document DICTATION DATE: 10/05/19 1346 ASSISTANT PROJECT ENGINEER: MANJU 10/05/19 1346 RPT#: [id number] DC DATE: STATUS: ADM IN [facility] [address] [place] [address] END OF REPORT
--- NOTE | 2019-10-05 13:54 | MORECARE ---
CASE MANAGEMENT DISCHARGE SUMMARY PATIENT: ANALIA MAYNARD SAIDA UNIT: [id number] ADM DATE: 10/02/19 AGE: 69 : 50 SEX: F ROOM/BED: D.2235 AUTHOR: MARE TREVINO PHYSICIAN: REFERRING PHYSICIAN: STEPHANIE PATTON MD DATE OF SERVICE: 10/05/19 Discharge Plan Patient Name: ANALIA MAYNARD Facility: [facility]:[place] : 1950 Planned Disposition: Home with Home Health and Infusion Serv Anticipated Discharge Date: Discharge Date: Expected LOS: Initial Reviewer: [email or web address] Initial Review Date: 10/05/2019 Generated: 10/05/19 2:54 pm Comments DCP- Discharge Planning Updated by [email or web address]: Yesenia Pompa on 10/05/19 12:[address] Patient Name: ANALIA MAYNARD Admission Status: ER Accout number: [id number] Admission Date: 10-02-2019 : 1950 Admission Diagnosis:DORSALGIA, UNSPECIFIED Attending: STEPHANIE PATTON Current LOS: 3 Anticipated DC Date: Planned Disposition: Home with Home Health and Infusion Serv Primary Insurance: [facility] MEDICARE SOLUTIONS Discharge Planning Comments: CM met with patient at bedside after explaining CM role and obtaining verbal consent. CM discussed availability / needs of home health, REHAB and medical equipment. WILL NEED HH AND 6-9 WEEKS OF IV ANTIBIOTICS. DAVID SIGNED FOR [facility]. FAXING FACE SHEET TO [facility]AN[facility] AND ANTICIPATE DISCHARGE SOON CULTURES ARE BACK. IMM SIGNED. Limnologist: Yesenia Pompa DCPIA - Discharge Planning Initial Assessment Updated by [email or web address]: Yesenia Pompa on 10/05/19 1:46 pm * Is the patient Alert and Oriented? Yes * PCP MULLINEX * Pharmacy [facility] * Preadmission Environment Home with Family * ADLs Independent * Community resources currently utilized None * Additional services required to return to the preadmission environment? Yes * Can the patient safely return to the preadmission environment? Yes * Has this patient been hospitalized within the prior 30 days at any hospital? No External Providers External Provider: [facility] Next Contact Date: Service Request Date: Service Type: Resolution: Reviewer: Comments: External Provider: [facility] Next Contact Date: Service Request Date: Service Type: Resolution: Reviewer: Comments: Coverage Notice Reviewer: [email or web address] Pompa Notice Issued Date-Time: 10/05/2019 13:52 Notice Type: IM Discharge Notice Notice Delivered To: Patient Relationship to Patient: Aerodynamicist Name: Delivery Method: HAND - Hand Delivered Conchita Days: Prior Verbal Notification: Recipient Understood Notice: Yes Recipient Signature: Yes Med Rec Note Co-signed by Attending: Coverage Notice Comment: Reviewer: [email or web address] Pompa Notice Issued Date-Time: 10/05/2019 13:52 Notice Type: Patient Choice Letter Notice Delivered To: Patient Relationship to Patient: Aerodynamicist Name: Delivery Method: HAND - Hand Delivered Conchita Days: Prior Verbal Notification: Recipient Understood Notice: Yes Recipient Signature: Yes Med Rec Note Co-signed by Attending: Coverage Notice Comment: [facility] Last DP export: 10/05/19 12:47 p Patient Name: ANALIA MAYNARD Page 61033 at 1354 All edits/amendments must be made on the electronic document DICTATION DATE: 10/05/19 1354 WEDDING COORDINATOR: MANJU 10/05/19 1354 RPT#: [id number] DC DATE: STATUS: ADM IN [facility] [address] [place] [address] END OF REPORT
[2019-10-05 17:36] VITALS: BP 116/64
[2019-10-05 20:00] VITALS: BP 113/56
--- NOTE | 2019-10-05 20:00 | NUR ---
PATIENT RESTING IN BED WATCHING TV. NO S/S OF ACUTE DISTRESS. NO C/O AT THIS TIME. PATIENT HAS IV IN LEFT FOREARM, NORMAL SALINE @ 30 ML/HR. IV IS PATENT WITHOUT REDNESS, SWELLING, OR TENDERNESS. PATIENT IS POST-OP DAY 1 OF A BILI DRAIN PLACED ON THE RIGHT SIDE. PATIENT IS UP ADLIB TO THE BATHROOM. CALL LIGHT WITHIN REACH. WILL CONTINUE TO MONITOR.
[2019-10-06] VITALS: BP 139/79
--- NOTE | 2019-10-06 01:08 | NUR ---
I have reviewed this patient and I concur with the Shift Assessment completed by the Licensed Practical Nurse today this shift.
[2019-10-06 04:00] VITALS: BP 104/71
[2019-10-06 05:24] LABS: BASOPHILS 0.2 % (0-2); EOSINOPHILS 1.6 % (0-7); HEMATOCRIT 34.5 % (36.0-48.0); IMMATURE GRANULOCYTES 1.7 % (0-5); LYMPHOCYTES 12.7 % (15-50); MCH 30.3 pg (26.0-34.0); MCHC 31.9 g/dL (31.0-37.0); MEAN PLATELET VOLUME 9.1 fL (7.4-10.4); MONOCYTES 7.6 % (2-11); NEUTROPHILS 76.2 % (40-80); PLATELET COUNT 482 10x3/uL (130-400); RBC 3.63 10x6/uL (4.00-5.40); WBC 8.9 10x3/uL (4.8-10.8)
[2019-10-06 06:00] LABS: CALC OSMOLALITY 282 mosm/kg (275-300); CALCIUM 8.6 mg/dL (8.5-10.1); CARBON DIOXIDE 27.8 mmol/L (21.0-32.0); CHLORIDE - SERUM 108 mmol/L (98-107); CREATININE - SERUM 0.7 mg/dL (0.6-1.3); GLUCOSE 97 mg/dL (74-106); PHOSPHOROUS 3.1 mg/dL (2.5-4.9); POTASSIUM - SERUM 4.1 mmol/L (3.5-5.1); SODIUM 143 mmol/L (136-145); eGFR NON AFRICAN AMERICAN 88 mL/min (90-120)
[2019-10-06 06:16] LABS: UREA NITROGEN 8 mg/dL (7-18)
--- NOTE | 2019-10-06 07:22 | NUR ---
ALERT AND ORIENTED. LUNGS CLEAR BILATERALLY. HEART SOUNDS S1 AND S2 HEARD IN ALL BURR. BOWEL SOUNDS ACTIVE X 4. IV TO LFA PATENT WITHOUT REDNESS. BILI DRAIN TO RIGHT SIDE PATENT. DENIES NEEDS. BED LOW. CALL SIMPSON AND PERSONAL ITEMS IN REACH. WILL CONTINUE TO MONITOR.
--- NOTE | 2019-10-06 09:42 | NUR ---
CONSENTS SIGNED FOR PICC PLACEMENT AND IR MADE AWARE.
--- NOTE | 2019-10-06 10:31 | NUR ---
PATIENT ASKING ABOUT SECOND CT TODAY. SPOKE WITH JACQUELINE LYNN WHO STATES UP TO IR WHETHER OR NOT TO DO SECOND CT.
--- NOTE | 2019-10-06 10:35 | NUR ---
SPOKE WITH IR WHO STATES TO ORDER SECOND CT FOR PATIENT.
[2019-10-06 11:05] VITALS: BP 120/62
--- NOTE | 2019-10-06 13:00 | NUR ---
DRAIN SET TO OPEN FOR ALTEPLASE TO DRAIN.
--- NOTE | 2019-10-06 13:23 | NUR ---
SPOKE WITH KIRSTEN VEGA WHO STATES NOT TO GIVE PATIENT SALINE FLUSH THROUGH DRAIN. STATES ALTEPLASE WAS FLUSH. FLUSH NOT GIVEN.
[2019-10-06 13:31] VITALS: BP 128/65
--- NOTE | 2019-10-06 17:00 | MORECARE ---
CASE MANAGEMENT DISCHARGE SUMMARY PATIENT: ANALIA MAYNARD UNIT: [id number] ADM DATE: 10/02/19 AGE: 69 : 50 SEX: F ROOM/BED: D.2235 AUTHOR: MARE TREVINO PHYSICIAN: REFERRING PHYSICIAN: STEPHANIE PATTON MD DATE OF SERVICE: 10/06/19 Discharge Plan Patient Name: ANALIA MAYNARD Facility: [facility]:[place] : 1950 Planned Disposition: Home with Home Health and Infusion Serv Anticipated Discharge Date: Discharge Date: Expected LOS: Initial Reviewer: [id number] Initial Review Date: 10/05/2019 Generated: 10/06/19 5:59 pm Comments DCP- Discharge Planning Updated by [email or web address]: Yesenia Pompa on 10/05/19 12:[address] Patient Name: ANALIA MAYNARD Admission Status: ER Accout number: [id number] Admission Date: 10-02-2019 : 1950 Admission Diagnosis:DORSALGIA, UNSPECIFIED Attending: STEPHANIE PATTON Current LOS: 3 Anticipated DC Date: Planned Disposition: Home with Home Health and Infusion Serv Primary Insurance: [facility] MEDICARE SOLUTIONS Discharge Planning Comments: CM met with patient at bedside after explaining CM role and obtaining verbal consent. CM discussed availability / needs of home health, REHAB and medical equipment. WILL NEED HH AND 6-9 WEEKS OF IV ANTIBIOTICS. DAVID SIGNED FOR [facility] AND [facility]. FAXING FACE SHEET TO [facility] AND ANTICIPATE DISCHARGE SOON CULTURES ARE BACK. IMM SIGNED. Ms Sql Dba: Yesenia Pompa DCPIA - Discharge Planning Initial Assessment Updated by [id number]: Yesenia Pompa on 10/05/19 1:46 pm * Is the patient Alert and Oriented? Yes * PCP MULLINEX * Pharmacy [facility] * Preadmission Environment Home with Family * ADLs Independent * Community resources currently utilized None * Additional services required to return to the preadmission environment? Yes * Can the patient safely return to the preadmission environment? Yes * Has this patient been hospitalized within the prior 30 days at any hospital? No Coverage Notice Reviewer: [id number] - Yesenia Pompa Notice Issued Date-Time: 10/05/2019 13:52 Notice Type: IM Discharge Notice Notice Delivered To: Patient Relationship to Patient: Maintenance Plumber Name: Delivery Method: HAND - Hand Delivered Conchita Days: Prior Verbal Notification: Recipient Understood Notice: Yes Recipient Signature: Yes Med Rec Note Co-signed by Attending: Coverage Notice Comment: Reviewer: [id number] Fercho Pompa Notice Issued Date-Time: 10/05/2019 13:52 Notice Type: Patient Choice Letter Notice Delivered To: Patient Relationship to Patient: Maintenance Plumber Name: Delivery Method: HAND - Hand Delivered Conchita Days: Prior Verbal Notification: Recipient Understood Notice: Yes Recipient Signature: Yes Med Rec Note Co-signed by Attending: Coverage Notice Comment: [facility] Last DP export: 10/05/19 12:54 p Patient Name: ANALIA MAYNARD Page 22167 at 1700 All edits/amendments must be made on the electronic document DICTATION DATE: 10/06/191658 PRODUCTION SUPPORT ANALYST: MANJU 10/06/191658 RPT#: [id number] DC DATE: STATUS: ADM IN [facility] [address] [place] [address] END OF REPORT
--- NOTE | 2019-10-06 17:08 | MORECARE ---
CASE MANAGEMENT DISCHARGE SUMMARY PATIENT: ANALIA MAYNARD SAIDA UNIT: [id number] ADM DATE: 10/02/19 AGE: 69 : 50 SEX: F ROOM/BED: D.2235 AUTHOR: MARE TREVINO PHYSICIAN: REFERRING PHYSICIAN: STEPHANIE PATTON MD DATE OF SERVICE: 10/06/19 Discharge Plan Patient Name: ANALIA MAYNARD Facility: [facility]:[place] : 1950 Planned Disposition: Home with Home Health and Infusion Serv Anticipated Discharge Date: Discharge Date: Expected LOS: Initial Reviewer: [email or web address] Initial Review Date: 10/05/2019 Generated: 10/06/19 6:08 pm Comments DCP- Discharge Planning Updated by [id number]: Yesenia Pompa on 10/06/19 4:[address] Patient Name: ANALIA MAYNARD Admission Status: ER Accout number: [id number] Admission Date: 10-02-2019 : 1950 Admission Diagnosis:DORSALGIA, UNSPECIFIED Attending: STEPHANIE PATTON Current LOS: 4 Anticipated DC Date: Planned Disposition: Home with Home Health and Infusion Serv Primary Insurance: [facility] MEDICARE SOLUTIONS Discharge Planning Comments: [facility] CALLED AND THEY ARE NOT COVERED BY PATIENT'S INSURANCE. [facility] IS COVERED BY INSURANCE FOR IV INFUSIONS, THEY ARE AWARE OF PATIENT AND WE WILL NEED TO FAX MED ORDER SHEET TO THEM AT [phone] AND THE OFFICE NUMBER IS [phone]. RECEIVED CALL FROM [facility] AND INSURANCE DOES NOT COVER THEM AND SAID [facility] DOES. I'M FAXING REFERRAL TO [facility] NOW. CM TO FOLLOW AND ASSIST NEEDED. Painting Supervisor: Yesenia Pompa DCP- Discharge Planning Updated by [email or web address]: Yesenia Pompa on 10/05/19 12:[address] Patient Name: ANALIA MAYNARD Admission Status: ER Accout number: [id number] Admission Date: 10-02-2019 : 1950 Admission Diagnosis:DORSALGIA, UNSPECIFIED Attending: STEPHANIE PATTON Current LOS: 3 Anticipated DC Date: Planned Disposition: Home with Home Health and Infusion Serv Primary Insurance: [facility] MEDICARE SOLUTIONS Discharge Planning Comments: CM met with patient at bedside after explaining CM role and obtaining verbal consent. CM discussed availability / needs of home health, REHAB and medical equipment. WILL NEED HH AND 6-9 WEEKS OF IV ANTIBIOTICS. DAVID SIGNED FOR [facility]. FAXING FACE SHEET TO [facility] AND ANTICIPATE DISCHARGE SOON CULTURES ARE BACK. IMM SIGNED. Painting Supervisor: Yesenia Pompa DCPIA - Discharge Planning Initial Assessment Updated by [id number]: Yesenia Pompa on 10/05/19 1:46 pm * Is the patient Alert and Oriented? Yes * PCP M[facility]EX * Pharmacy [facility] * Preadmission Environment Home with Family * ADLs Independent * Community resources currently utilized None * Additional services required to return to the preadmission environment? Yes * Can the patient safely return to the preadmission environment? Yes * Has this patient been hospitalized within the prior 30 days at any hospital? No Coverage Notice Reviewer: [id number] Fercho Pompa Notice Issued Date-Time: 10/05/2019 13:52 Notice Type: IM Discharge Notice Notice Delivered To: Patient Relationship to Patient: Director Information Name: Delivery Method: HAND - Hand Delivered Conchita Days: Prior Verbal Notification: Recipient Understood Notice: Yes Recipient Signature: Yes Med Rec Note Co-signed by Attending: Coverage Notice Comment: Reviewer: [id number] Fercho Pompa Notice Issued Date-Time: 10/05/2019 13:52 Notice Type: Patient Choice Letter Notice Delivered To: Patient Relationship to Patient: Director Information Name: Delivery Method: HAND - Hand Delivered Conchita Days: Prior Verbal Notification: Recipient Understood Notice: Yes Recipient Signature: Yes Med Rec Note Co-signed by Attending: Coverage Notice Comment: [facility] Last DP export: 10/06/19 4:00 p Patient Name: ANALIA MAYNARD Page 17701 at 1708 All edits/amendments must be made on the electronic document DICTATION DATE: 10/06/191707 BUSINESS APPLICATIONS SPECIALIST: MANJU 10/06/191707 RPT#: [id number] DC DATE: STATUS: ADM IN [facility] [address] [place] [address] END OF REPORT
--- NOTE | 2019-10-06 17:15 | MORECARE ---
CASE MANAGEMENT DISCHARGE SUMMARY PATIENT: ANALIA MAYNARD SAIDA UNIT: [id number] ADM DATE: 10/02/19 AGE: 69 : 50 SEX: F ROOM/BED: D.2235 AUTHOR: MARE TREVINO PHYSICIAN: REFERRING PHYSICIAN: STEPHANIE PATTON MD DATE OF SERVICE: 10/06/19 Discharge Plan Patient Name: ANALIA MAYNARD Facility: [facility]:[place] : 1950 Planned Disposition: Home with Home Health and Infusion Serv Anticipated Discharge Date: Discharge Date: Expected LOS: Initial Reviewer: [id number] Initial Review Date: 10/05/2019 Generated: 10/06/19 6:15 pm Comments DCP- Discharge Planning Updated by [id number]: Yesenia Pompa on 10/06/19 4:[address] Patient Name: ANALIA MAYNARD Admission Status: ER Accout number: [id number] Admission Date: 10-02-2019 : 1950 Admission Diagnosis:DORSALGIA, UNSPECIFIED Attending: STEPHANIE PATTON Current LOS: 4 Anticipated DC Date: Planned Disposition: Home with Home Health and Infusion Serv Primary Insurance: [facility] MEDICARE SOLUTIONS Discharge Planning Comments: [facility] CALLED AND THEY ARE NOT COVERED BY PATIENT'S INSURANCE. [facility] IS COVERED BY INSURANCE FOR IV INFUSIONS, THEY ARE AWARE OF PATIENT AND WE WILL NEED TO FAX MED ORDER SHEET TO THEM AT [phone] AND THE OFFICE NUMBER IS [phone]. RECEIVED CALL FROM [facility] AND INSURANCE DOES NOT COVER THEM AND SAID [facility] DOES. I'M FAXING REFERRAL TO [facility] NOW. CM TO FOLLOW AND ASSIST NEEDED. Computer Hardware Technician: Yesenia Pompa DCP- Discharge Planning Updated by [id number]: Yesenia Pompa on 10/05/19 12:[address] Patient Name: ANALIA MAYNARD Admission Status: ER Accout number: [id number] Admission Date: 10-02-2019 : 1950 Admission Diagnosis:DORSALGIA, UNSPECIFIED Attending: STEPHANIE PATTON Current LOS: 3 Anticipated DC Date: Planned Disposition: Home with Home Health and Infusion Serv Primary Insurance: [facility] MEDICARE SOLUTIONS Discharge Planning Comments: CM met with patient at bedside after explaining CM role and obtaining verbal consent. CM discussed availability / needs of home health, REHAB and medical equipment. WILL NEED HH AND 6-9 WEEKS OF IV ANTIBIOTICS. DAVID SIGNED FOR [facility]. FAXING FACE SHEET TO [facility] AND ANTICIPATE DISCHARGE SOON CULTURES ARE BACK. IMM SIGNED. Computer Hardware Technician: Yesenia Pompa DCPIA - Discharge Planning Initial Assessment Updated by [id number]: Yesenia Pompa on 10/05/19 1:46 pm * Is the patient Alert and Oriented? Yes * PCP [facility]EX * Pharmacy [facility] * Preadmission Environment Home with Family * ADLs Independent * Community resources currently utilized None * Additional services required to return to the preadmission environment? Yes * Can the patient safely return to the preadmission environment? Yes * Has this patient been hospitalized within the prior 30 days at any hospital? No Coverage Notice Reviewer: [id number] Fercho Pompa Notice Issued Date-Time: 10/05/2019 13:52 Notice Type: IM Discharge Notice Notice Delivered To: Patient Relationship to Patient: Director Of Audiology Name: Delivery Method: HAND - Hand Delivered Conchita Days: Prior Verbal Notification: Recipient Understood Notice: Yes Recipient Signature: Yes Med Rec Note Co-signed by Attending: Coverage Notice Comment: Reviewer: [id number] Fercho Pompa Notice Issued Date-Time: 10/05/2019 13:52 Notice Type: Patient Choice Letter Notice Delivered To: Patient Relationship to Patient: Director Of Audiology Name: Delivery Method: HAND - Hand Delivered Conchita Days: Prior Verbal Notification: Recipient Understood Notice: Yes Recipient Signature: Yes Med Rec Note Co-signed by Attending: Coverage Notice Comment: [facility] Last DP export: 10/06/19 4:08 p Patient Name: ANALIA MAYNARD Page 02430 at 1715 All edits/amendments must be made on the electronic document DICTATION DATE: 10/06/191714 SKATE SHOP ATTENDANT: MANJU 10/06/191714 RPT#: [id number] DC DATE: STATUS: ADM IN [facility] [address] [place] [address] END OF REPORT
--- NOTE | 2019-10-06 17:23 | MORECARE ---
CASE MANAGEMENT DISCHARGE SUMMARY PATIENT: ANALIA MAYNARD SAIDA UNIT: [id number] ADM DATE: 10/02/19 AGE: 69 : 50 SEX: F ROOM/BED: D.2235 AUTHOR: BELINDADOC PHYSICIAN: REFERRING PHYSICIAN: STEPHANIE PATTON MD DATE OF SERVICE: 10/06/19 Discharge Plan Patient Name: ANALIA MAYNARD Facility: [facility]:[place] : 1950 Planned Disposition: Home with Home Health and Infusion Serv Anticipated Discharge Date: Discharge Date: Expected LOS: Initial Reviewer: [id number] Initial Review Date: 10/05/2019 Generated: 10/06/19 6:23 pm Comments DCP- Discharge Planning Updated by [email or web address]: Yesenia Pompa on 10/06/19 4:[address] Patient Name: ANALIA MAYNARD Admission Status: ER Accout number: [id number] Admission Date: 10-02-2019 : 1950 Admission Diagnosis:DORSALGIA, UNSPECIFIED Attending: STEPHANIE PATTON Current LOS: 4 Anticipated DC Date: Planned Disposition: Home with Home Health and Infusion Serv Primary Insurance: [facility] MEDICARE SOLUTIONS Discharge Planning Comments: [facility] CALLED AND THEY ARE NOT COVERED BY PATIENT'S INSURANCE. [facility] IS COVERED BY INSURANCE FOR IV INFUSIONS, THEY ARE AWARE OF PATIENT AND WE WILL NEED TO FAX MED ORDER SHEET TO THEM AT [phone] AND THE OFFICE NUMBER IS [phone]. RECEIVED CALL FROM [facility] AND INSURANCE DOES NOT COVER THEM AND SAID [facility] DOES. I'M FAXING REFERRAL TO [facility] NOW. CM TO FOLLOW AND ASSIST NEEDED. Dean Of Student Services: Yesenia Pompa DCP- Discharge Planning Updated by [id number]: Yesenia Pompa on 10/05/19 12:[address] Patient Name: ANALIA MAYNARD Admission Status: ER Accout number: [id number] Admission Date: 10-02-2019 : 1950 Admission Diagnosis:DORSALGIA, UNSPECIFIED Attending: STEPHANIE PATTON Current LOS: 3 Anticipated DC Date: Planned Disposition: Home with Home Health and Infusion Serv Primary Insurance: [facility] MEDICARE SOLUTIONS Discharge Planning Comments: CM met with patient at bedside after explaining CM role and obtaining verbal consent. CM discussed availability / needs of home health, REHAB and medical equipment. WILL NEED HH AND 6-9 WEEKS OF IV ANTIBIOTICS. DAVID SIGNED FOR [facility] AND [facility]. FAXING FACE SHEET TO [facility] AND ANTICIPATE DISCHARGE SOON CULTURES ARE BACK. IMM SIGNED. Dean Of Student Services: Yesenia Pompa DCPIA - Discharge Planning Initial Assessment Updated by [id number]: Yesenia Pompa on 10/05/19 1:46 pm * Is the patient Alert and Oriented? Yes * PCP [facility]EX * Pharmacy [facility] * Preadmission Environment Home with Family * ADLs Independent * Community resources currently utilized None * Additional services required to return to the preadmission environment? Yes * Can the patient safely return to the preadmission environment? Yes * Has this patient been hospitalized within the prior 30 days at any hospital? No Coverage Notice Reviewer: [id number] Fercho Pompa Notice Issued Date-Time: 10/05/2019 13:52 Notice Type: IM Discharge Notice Notice Delivered To: Patient Relationship to Patient: Log Grader Name: Delivery Method: HAND - Hand Delivered Conchita Days: Prior Verbal Notification: Recipient Understood Notice: Yes Recipient Signature: Yes Med Rec Note Co-signed by Attending: Coverage Notice Comment: Reviewer: [id number] Fercho Pompa Notice Issued Date-Time: 10/05/2019 13:52 Notice Type: Patient Choice Letter Notice Delivered To: Patient Relationship to Patient: Log Grader Name: Delivery Method: HAND - Hand Delivered Conchita Days: Prior Verbal Notification: Recipient Understood Notice: Yes Recipient Signature: Yes Med Rec Note Co-signed by Attending: Coverage Notice Comment: [facility] Last DP export: 10/06/19 4:15 p Patient Name: ANALIA MAYNARD Page 54511 at 1723 All edits/amendments must be made on the electronic document DICTATION DATE: 10/06/191722 TRIMMER PRESS CLIPPINGS: MANJU 10/06/191722 RPT#: [id number] DC DATE: STATUS: ADM IN [facility] [address] [place] [address] END OF REPORT
[2019-10-06 17:31] VITALS: BP 118/55
[2019-10-06 20:00] VITALS: BP 123/60
--- NOTE | 2019-10-06 20:00 | NUR ---
PATIENT RESTING IN BED WITH AT BEDSIDE. NO S/S OF ACUTE DISTRESS. NO C/O AT THIS TIME. PATIENT HAS A RIGHT UPPER ARM PICC, SALINE LOC. IV IS PATNET WITHOUT REDNESS, SWELLING, OR TENDERNESS. PATIENT HAS RIGHT SIDE GABY DRAIN. PATIENT IS UP ADLIB TO THE BATHROOM. CALL LIGHT WITHIN REACH. WILL CONTINUE TO MONITOR.
[2019-10-07] VITALS: BP 100/50
--- NOTE | 2019-10-07 02:31 | NUR ---
I have reviewed this patient and I concur with the Shift Assessment completed by the Licensed Practical Nurse today this shift.
[2019-10-07 04:00] VITALS: BP 118/83
[2019-10-07 06:39] LABS: BASOPHILS 0.2 % (0-2); EOSINOPHILS 1.8 % (0-7); HEMATOCRIT 35.9 % (36.0-48.0); HEMOGLOBIN 11.2 g/dL (12-16); IMMATURE GRANULOCYTES 1.7 % (0-5); LYMPHOCYTES 12.7 % (15-50); MCH 29.7 pg (26.0-34.0); MCHC 31.2 g/dL (31.0-37.0); MCV 95.2 fL (80.0-100.0); MEAN PLATELET VOLUME 9.4 fL (7.4-10.4); MONOCYTES 8.9 % (2-11); NEUTROPHILS 74.7 % (40-80); PLATELET COUNT 454 10x3/uL (130-400); RBC 3.77 10x6/uL (4.00-5.40); RDW 15.2 % (11.5-14.5); WBC 10.1 10x3/uL (4.8-10.8)
[2019-10-07 07:02] LABS: CALC OSMOLALITY 274 mosm/kg (275-300); CALCIUM 9.1 mg/dL (8.5-10.1); CARBON DIOXIDE 27.8 mmol/L (21.0-32.0); CHLORIDE - SERUM 105 mmol/L (98-107); CREATININE - SERUM 0.8 mg/dL (0.6-1.3); GLUCOSE 80 mg/dL (74-106); PHOSPHOROUS 3.7 mg/dL (2.5-4.9); POTASSIUM - SERUM 4.7 mmol/L (3.5-5.1); SODIUM 140 mmol/L (136-145); UREA NITROGEN 4 mg/dL (7-18); eGFR NON AFRICAN AMERICAN 75 mL/min (90-120)
[2019-10-07 09:42] VITALS: BP 126/61
--- NOTE | 2019-10-07 10:00 | NUR ---
PT STATED THAT SHE HAS HAD A "RELEASE." HER DAUGHTER IS IN THE ROOM. CO OF SMALL AMOUNT OF PAIN WHEN SHE GETS UP AND WALKS. REQUESTED A WARM WASH CLOTH AND WASH PROVIDED WITH IT. CL IN REACH. SINTM
[2019-10-07 12:52] VITALS: BP 116/58
--- NOTE | 2019-10-07 13:00 | NUR ---
HOT TEA AND PRUNE JUICE PROVIDED REQUESTED. NO FURTHER NEEDS AT THIS TIME. WCTM.
[2019-10-07 18:20] VITALS: BP 109/47
[2019-10-07 20:00] VITALS: BP 119/59
[2019-10-08] VITALS (7 sets, daily range): BP systolic 98–125; BP diastolic 37–62
--- NOTE | 2019-10-08 03:26 | NUR ---
RESTING IN BED WITH NO NEEDS AT THISTIME. ALERT AND ORENTED ABLE TO VOICE NEEDS TO STAFF. PICC LINE TO RIGHT UPPER ARM WITH NS PER ORDERS. DRAIN IN PLACE AND PATEN. WATER AND CALL LIGHT IN REACH.
[2019-10-08 07:29] LABS: BASOPHILS 0.3 % (0-2); HEMATOCRIT 32.5 % (36.0-48.0); HEMOGLOBIN 10.4 g/dL (12-16); IMMATURE GRANULOCYTES 1.3 % (0-5); LYMPHOCYTES 14.4 % (15-50); MCH 30.1 pg (26.0-34.0); MCV 94.2 fL (80.0-100.0); MEAN PLATELET VOLUME 8.9 fL (7.4-10.4); MONOCYTES 8.1 % (2-11); NEUTROPHILS 73.9 % (40-80); PLATELET COUNT 391 10x3/uL (130-400); RBC 3.45 10x6/uL (4.00-5.40)
[2019-10-08 07:32] LABS: WBC 7.4 10x3/uL (4.8-10.8)
[2019-10-08 07:43] LABS: CALCIUM 8.6 mg/dL (8.5-10.1); CARBON DIOXIDE 28.8 mmol/L (21.0-32.0); POTASSIUM - SERUM 3.8 mmol/L (3.5-5.1)
--- NOTE | 2019-10-08 08:41 | NUR ---
PT SLEEPING ON LEFT SIDE. EASILY AWAKENED TO DO SHIFT ASSESSMENT. CL IN REACH. WCTM
--- NOTE | 2019-10-08 19:01 | NUR ---
PT DENIES ANY NEEDS. SALINE LOCKED HER PICC LINE. CL IN REACH. WCTM
[2019-10-09] VITALS: BP 135/63
[2019-10-09 06:17] LABS: BASOPHILS 0.3 % (0-2); EOSINOPHILS 1.7 % (0-7); HEMATOCRIT 33.1 % (36.0-48.0); HEMOGLOBIN 10.4 g/dL (12-16); IMMATURE GRANULOCYTES 1.2 % (0-5); LYMPHOCYTES 15.9 % (15-50); MCH 29.8 pg (26.0-34.0); MCHC 31.4 g/dL (31.0-37.0); MCV 94.8 fL (80.0-100.0); MEAN PLATELET VOLUME 9.5 fL (7.4-10.4); NEUTROPHILS 71.9 % (40-80); PLATELET COUNT 379 10x3/uL (130-400); RBC 3.49 10x6/uL (4.00-5.40); RDW 15.2 % (11.5-14.5); WBC 7.7 10x3/uL (4.8-10.8)
[2019-10-09 06:33] LABS: CALCIUM 9.1 mg/dL (8.5-10.1); CARBON DIOXIDE 28.3 mmol/L (21.0-32.0); CHLORIDE - SERUM 108 mmol/L (98-107); POTASSIUM - SERUM 3.9 mmol/L (3.5-5.1); SODIUM 143 mmol/L (136-145); UREA NITROGEN 5 mg/dL (7-18); eGFR NON AFRICAN AMERICAN 88 mL/min (90-120)
[2019-10-09 06:41] LABS: CALC OSMOLALITY 280 mosm/kg (275-300); CREATININE - SERUM 0.7 mg/dL (0.6-1.3); GLUCOSE 85 mg/dL (74-106)
--- NOTE | 2019-10-09 07:45 | NUR ---
PT LAYING ON LEFT SIDE. EASILY AWAKENED. CL IN REACH. NO NEEDS AT THIS TIME. WCTM
[2019-10-09 08:00] VITALS: BP 122/62
[2019-10-09 12:00] VITALS: BP 115/71
--- NOTE | 2019-10-09 14:03 | MORECARE ---
CASE MANAGEMENT DISCHARGE SUMMARY PATIENT: ANALIA MAYNARD SAIDA UNIT: [id number] ADM DATE: 10/02/19 AGE: 69 : 50 SEX: F ROOM/BED: D.2235 AUTHOR: MARE TREVINO PHYSICIAN: REFERRING PHYSICIAN: STEPHANIE PATTON MD DATE OF SERVICE: 10/09/19 Discharge Plan Patient Name: ANALIA MAYNARD Facility: [facility]:[place] : 1950 Planned Disposition: Home with Home Health and Infusion Serv Anticipated Discharge Date: Discharge Date: Expected LOS: Initial Reviewer: [id number] Initial Review Date: 10/05/2019 Generated: 10/09/19 3:03 pm Comments DCP- Discharge Planning Updated by [email or web address]: Yesenia Pompa on 10/06/19 4:[address] Patient Name: ANALIA MAYNARD Admission Status: ER Accout number: [id number] Admission Date: 10-02-2019 : 1950 Admission Diagnosis:DORSALGIA, UNSPECIFIED Attending: STEPHANIE PATTON Current LOS: 4 Anticipated DC Date: Planned Disposition: Home with Home Health and Infusion Serv Primary Insurance: [facility] MEDICARE SOLUTIONS Discharge Planning Comments: [facility] CALLED AND THEY ARE NOT COVERED BY PATIENT'S INSURANCE. [facility] IS COVERED BY INSURANCE FOR IV INFUSIONS, THEY ARE AWARE OF PATIENT AND WE WILL NEED TO FAX MED ORDER SHEET TO THEM AT [phone] AND THE OFFICE NUMBER IS [phone]. RECEIVED CALL FROM [facility] AND INSURANCE DOES NOT COVER THEM AND SAID [facility] DOES. I'M FAXING REFERRAL TO [facility] NOW. CM TO FOLLOW AND ASSIST NEEDED. Senior Sql Dba: Yesenia Pompa DCP- Discharge Planning Updated by [id number]: Yesenia Pompa on 10/05/19 12:[address] Patient Name: ANALIA MAYNARD Admission Status: ER Accout number: [id number] Admission Date: 10-02-2019 : 1950 Admission Diagnosis:DORSALGIA, UNSPECIFIED Attending: STEPHANIE PATTON Current LOS: 3 Anticipated DC Date: Planned Disposition: Home with Home Health and Infusion Serv Primary Insurance: [facility] MEDICARE SOLUTIONS Discharge Planning Comments: CM met with patient at bedside after explaining CM role and obtaining verbal consent. CM discussed availability / needs of home health, REHAB and medical equipment. WILL NEED HH AND 6-9 WEEKS OF IV ANTIBIOTICS. DAVID SIGNED FOR [facility] AND [facility]. FAXING FACE SHEET TO [facility] AND ANTICIPATE DISCHARGE SOON CULTURES ARE BACK. IMM SIGNED. Senior Sql Dba: Yesenia Pompa DCPIA - Discharge Planning Initial Assessment Updated by [id number]: Yesenia Pompa on 10/05/19 1:46 pm * Is the patient Alert and Oriented? Yes * PCP MULLINEX * Pharmacy [facility] * Preadmission Environment Home with Family * ADLs Independent * Community resources currently utilized None * Additional services required to return to the preadmission environment? Yes * Can the patient safely return to the preadmission environment? Yes * Has this patient been hospitalized within the prior 30 days at any hospital? No External Providers [facility] Contact Date: Service Request Date: Service Type: Resolution: Reviewer: Comments: Coverage Notice Reviewer: [id number] Pompa Notice Issued Date-Time: 10/05/2019 13:52 Notice Type: IM Discharge Notice Notice Delivered To: Patient Relationship to Patient: Tinning Machine Set Up Operator Name: Delivery Method: HAND - Hand Delivered Conchita Days: Prior Verbal Notification: Recipient Understood Notice: Yes Recipient Signature: Yes Med Rec Note Co-signed by Attending: Coverage Notice Comment: Reviewer: [id number] Fercho Pompa Notice Issued Date-Time: 10/05/2019 13:52 Notice Type: Patient Choice Letter Notice Delivered To: Patient Relationship to Patient: Tinning Machine Set Up Operator Name: Delivery Method: HAND - Hand Delivered Conchita Days: Prior Verbal Notification: Recipient Understood Notice: Yes Recipient Signature: Yes Med Rec Note Co-signed by Attending: Coverage Notice Comment: [facility] Last DP export: 10/06/19 4:23 p Patient Name: ANALIA MAYNARD Page 27865 at 1403 All edits/amendments must be made on the electronic document DICTATION DATE: 10/09/19 1403 TEACHING FELLOW: MANJU 10/09/19 1403 RPT#: [id number] DC DATE: STATUS: ADM IN [facility] [address] [place] [address] END OF REPORT
[2019-10-09] MEDS ORDERED: TYLENOL W/CODEI1 TAB PO (14:07)
--- NOTE | 2019-10-09 14:10 | MORECARE ---
CASE MANAGEMENT DISCHARGE SUMMARY PATIENT: ANALIA MAYNARD SAIDA UNIT: [id number] ADM DATE: 10/02/19 AGE: 69 : 50 SEX: F ROOM/BED: D.2235 AUTHOR: MARE TREVINO PHYSICIAN: REFERRING PHYSICIAN: STEPHANIE PATTON MD DATE OF SERVICE: 10/09/19 Discharge Plan Patient Name: ANALIA MAYNARD Facility: [facility]:[place] : 1950 Planned Disposition: Home with Home Health and Infusion Serv Anticipated Discharge Date: Discharge Date: Expected LOS: Initial Reviewer: [id number] Initial Review Date: 10/05/2019 Generated: 10/09/19 3:10 pm Comments DCP- Discharge Planning Updated by [id number]: Yesenia Pompa on 10/06/19 4:[address] Patient Name: ANALIA MAYNARD Admission Status: ER Accout number: [id number] Admission Date: 10-02-2019 : 1950 Admission Diagnosis:DORSALGIA, UNSPECIFIED Attending: STEPHANIE PATTON Current LOS: 4 Anticipated DC Date: Planned Disposition: Home with Home Health and Infusion Serv Primary Insurance: [facility] MEDICARE SOLUTIONS Discharge Planning Comments: [facility] CALLED AND THEY ARE NOT COVERED BY PATIENT'S INSURANCE. [facility] IS COVERED BY INSURANCE FOR IV INFUSIONS, THEY ARE AWARE OF PATIENT AND WE WILL NEED TO FAX MED ORDER SHEET TO THEM AT [phone] AND THE OFFICE NUMBER IS [phone]. RECEIVED CALL FROM [facility] AND INSURANCE DOES NOT COVER THEM AND SAID [facility] DOES. I'M FAXING REFERRAL TO [facility] NOW. CM TO FOLLOW AND ASSIST NEEDED. Program Director Substance Abuse: Yesenia Pompa DCP- Discharge Planning Updated by [id number]: Yesenia Pompa on 10/05/19 12:[address] Patient Name: ANALIA MAYNARD Admission Status: ER Accout number: [id number] Admission Date: 10-02-2019 : 1950 Admission Diagnosis:DORSALGIA, UNSPECIFIED Attending: STEPHANIE PATTON Current LOS: 3 Anticipated DC Date: Planned Disposition: Home with Home Health and Infusion Serv Primary Insurance: [facility] [employer] SOLUTIONS Discharge Planning Comments: CM met with patient at bedside after explaining CM role and obtaining verbal consent. CM discussed availability / needs of home health, REHAB and medical equipment. WILL NEED HH AND 6-9 WEEKS OF IV ANTIBIOTICS. DAVID SIGNED FOR [facility]. FAXING FACE SHEET TO [facility] AND ANTICIPATE DISCHARGE SOON CULTURES ARE BACK. IMM SIGNED. Program Director Substance Abuse: Yeseniafelix Pompa DCPIA - Discharge Planning Initial Assessment Updated by [id number]: Yesenia Pompa on 10/05/19 1:46 pm * Is the patient Alert and Oriented? Yes * PCP [facility] * Pharmacy [facility] * Preadmission Environment Home with Family * ADLs Independent * Community resources currently utilized None * Additional services required to return to the preadmission environment? Yes * Can the patient safely return to the preadmission environment? Yes * Has this patient been hospitalized within the prior 30 days at any hospital? No External Providers External Provider: OTHER-OTHER Next Contact Date: Service Request Date: Service Type: Resolution: Reviewer: Comments: Coverage Notice Reviewer: [id number] Fercho Pompa Notice Issued Date-Time: 10/05/2019 13:52 Notice Type: IM Discharge Notice Notice Delivered To: Patient Relationship to Patient: Post Closing Specialist Name: Delivery Method: HAND - Hand Delivered Conchita Days: Prior Verbal Notification: Recipient Understood Notice: Yes Recipient Signature: Yes Med Rec Note Co-signed by Attending: Coverage Notice Comment: Reviewer: [id number] Pompa Notice Issued Date-Time: 10/05/2019 13:52 Notice Type: Patient Choice Letter Notice Delivered To: Patient Relationship to Patient: Post Closing Specialist Name: Delivery Method: HAND - Hand Delivered Conchita Days: Prior Verbal Notification: Recipient Understood Notice: Yes Recipient Signature: Yes Med Rec Note Co-signed by Attending: Coverage Notice Comment: [facility] Last DP export: 10/09/19 1:03 pm Patient Name: ANALIA MAYNARD Page [id number] at 1410 All edits/amendments must be made on the electronic document DICTATION DATE: 10/09/19 1410 STRINGING MACHINE OPERATOR: MANJU 10/09/19 1410 RPT#: [id number] DC DATE: STATUS: ADM IN [facility] [address] [place] [address] END OF REPORT
--- NOTE | 2019-10-09 14:35 | MORECARE ---
CASE MANAGEMENT DISCHARGE SUMMARY PATIENT: ANALIA MAYNARD SAIDA UNIT: [id number] ADM DATE: 10/02/19 AGE: 69 : 50 SEX: F ROOM/BED: D.2235 AUTHOR: MARE TREVINO PHYSICIAN: REFERRING PHYSICIAN: STEPHANIE PATTON MD DATE OF SERVICE: 10/09/19 Discharge Plan Patient Name: ANALIA MAYNARD Facility: [facility]:[place] : 1950 Planned Disposition: Home with Home Health and Infusion Serv Anticipated Discharge Date: Discharge Date: Expected LOS: Initial Reviewer: [id number] Initial Review Date: 10/05/2019 Generated: 10/09/19 3:34 pm Comments DCP- Discharge Planning Updated by [id number]: Yesenia Pompa on 10/09/19 1:[address] Patient Name: ANALIA MAYNARD Admission Status: ER Accout number: [id number] Admission Date: 10-02-2019 : 1950 Admission Diagnosis:DORSALGIA, UNSPECIFIED Attending: STEPHANIE PATTON Current LOS: 7 Anticipated DC Date: Planned Disposition: Home with Home Health and Infusion Serv Primary Insurance: [facility] MEDICARE SOLUTIONS Discharge Planning Comments: IV MED ORDERS AND OTHER DOCUMENTS FAXED TO [facility]. [facility] WILL START CARE TOMORROW. WAITING CALL BACK FROM [facility] ABOUT WHAT TIME THEY WILL BE HERE TO DO TEACHING WITH PATIENT AND HER . CM TO FOLLOW AND ASSIST NEEDED. PLANS TO DC TODAY. Poultry Barn Manager: Yesenia Pompa DCP- Discharge Planning Updated by [email or web address]: Yesenia Pompa on 10/06/19 4:[address] Patient Name: ANALIA MAYNARD Admission Status: ER Accout number: [id number] Admission Date: 10-02-2019 : 1950 Admission Diagnosis:DORSALGIA, UNSPECIFIED Attending: STEPHANIE PATTON Current LOS: 4 Anticipated DC Date: Planned Disposition: Home with Home Health and Infusion Serv Primary Insurance: [facility] MEDICARE SOLUTIONS Discharge Planning Comments: [facility] CALLED AND THEY ARE NOT COVERED BY PATIENT'S INSURANCE. [facility] IS COVERED BY INSURANCE FOR IV INFUSIONS, THEY ARE AWARE OF PATIENT AND WE WILL NEED TO FAX MED ORDER SHEET TO THEM AT [phone] AND THE OFFICE NUMBER IS [phone]. RECEIVED CALL FROM [facility] AND INSURANCE DOES NOT COVER THEM AND SAID [facility] DOES. I'M FAXING REFERRAL TO [facility] NOW. CM TO FOLLOW AND ASSIST NEEDED. Poultry Barn Manager: Yesenia Pompa DCP- Discharge Planning Updated by [id number]: Yesenia Pompa on 10/05/19 12:[address] Patient Name: ANALIA MAYNARD Admission Status: ER Accout number: [id number] Admission Date: 10-02-2019 : 1950 Admission Diagnosis:DORSALGIA, UNSPECIFIED Attending: STEPHANIE PATTON Current LOS: 3 Anticipated DC Date: Planned Disposition: Home with Home Health and Infusion Serv Primary Insurance: [facility] MEDICARE SOLUTIONS Discharge Planning Comments: CM met with patient at bedside after explaining CM role and obtaining verbal consent. CM discussed availability / needs of home health, REHAB and medical equipment. WILL NEED HH AND 6-9 WEEKS OF IV ANTIBIOTICS. DAVID SIGNED FOR [facility]. FAXING FACE SHEET TO [facility] AND ANTICIPATE DISCHARGE SOON CULTURES ARE BACK. IMM SIGNED. Poultry Barn Manager: Yesenia Pompa DCA - Discharge Planning Initial Assessment Updated by [id number]: Yesenia Pompa on 10/05/19 1:46 pm * Is the patient Alert and Oriented? Yes * PCP [facility] * Pharmacy [facility] * Preadmission Environment Home with Family * ADLs Independent * Community resources currently utilized None * Additional services required to return to the preadmission environment? Yes * Can the patient safely return to the preadmission environment? Yes * Has this patient been hospitalized within the prior 30 days at any hospital? No Coverage Notice Reviewer: [id number] Fercho Pompa Notice Issued Date-Time: 10/05/2019 13:52 Notice Type: IM Discharge Notice Notice Delivered To: Patient Relationship to Patient: Lathe Tender Name: Delivery Method: HAND - Hand Delivered Conchita Days: Prior Verbal Notification: Recipient Understood Notice: Yes Recipient Signature: Yes Med Rec Note Co-signed by Attending: Coverage Notice Comment: Reviewer: [id number] Fercho Pompa Notice Issued Date-Time: 10/05/2019 13:52 Notice Type: Patient Choice Letter Notice Delivered To: Patient Relationship to Patient: Lathe Tender Name: Delivery Method: HAND - Hand Delivered Conchita Days: Prior Verbal Notification: Recipient Understood Notice: Yes Recipient Signature: Yes Med Rec Note Co-signed by Attending: Coverage Notice Comment: [facility] Last DP export: 10/09/19 1:10 pm Patient Name: ANALIA MAYNARD Page 15003 at 1435 All edits/amendments must be made on the electronic document DICTATION DATE: 10/09/191433 INTERTYPE OPERATOR: MANJU 10/09/19 1434 RPT#: [id number] DC DATE: STATUS: ADM IN [facility] [address] [place] [address] END OF REPORT
--- NOTE | 2019-10-09 15:56 | NUR ---
DISCHARGE INSTRUCTIONS GIVEN. PATIENT VERBALIZED UNDERSTANDING. [facility] IS ON THEIR WAY BUT SHE WANTS TO GET THE FULL BENIFITS OF HER [facility] VANC THAT IS RUNNING. WILL NOTIFY ME WHEN SHE IS DONE WITH [facility]X AND READY TO BE WHEELED OUT.
--- NOTE | 2019-10-11 09:26 | MORECARE ---
CASE MANAGEMENT DISCHARGE SUMMARY PATIENT: ANALIA MAYNARD SAIDA UNIT: [id number] ADM DATE: 10/02/19 AGE: 69 : 50 SEX: F ROOM/BED: D.2235 AUTHOR: MARE TREVINO PHYSICIAN: REFERRING PHYSICIAN: STEPHANIE PATTON MD DATE OF SERVICE: 10/11/19 Discharge Plan Patient Name: ANALIA MAYNARD Facility: [facility]:[place] : 1950 Planned Disposition: Home with Home Health and Infusion Serv Anticipated Discharge Date: Discharge Date: 10/09/2019 Expected LOS: Initial Reviewer: [id number] Initial Review Date: 10/05/2019 Generated: 10/11/19 10:25 am Comments DCP- Discharge Planning Updated by [email or web address]: Yesenia Pompa on 10/09/19 1:[address] Patient Name: ANALIA MAYNARD Admission Status: ER Accout number: [id number] Admission Date: 10-02-2019 : 1950 Admission Diagnosis:DORSALGIA, UNSPECIFIED Attending: STEPHANIE PATTON Current LOS: 7 Anticipated DC Date: Planned Disposition: Home with Home Health and Infusion Serv Primary Insurance: [facility] MEDICARE SOLUTIONS Discharge Planning Comments: IV MED ORDERS AND OTHER DOCUMENTS FAXED TO [facility]. [facility] WILL START CARE TOMORROW. WAITING CALL BACK FROM [facility] ABOUT WHAT TIME THEY WILL BE HERE TO DO TEACHING WITH PATIENT AND HER . CM TO FOLLOW AND ASSIST NEEDED. PLANS TO DC TODAY. Delivery Driver: Yesenia Pompa DCP- Discharge Planning Updated by [id number]: Yesenia Pompa on 10/06/19 4:[address] Patient Name: ANALIA MAYNARD Admission Status: ER Accout number: [id number] Admission Date: 10-02-2019 : 1950 Admission Diagnosis:DORSALGIA, UNSPECIFIED Attending: STEPHANIE PATTON Current LOS: 4 Anticipated DC Date: Planned Disposition: Home with Home Health and Infusion Serv Primary Insurance: [facility] MEDICARE SOLUTIONS Discharge Planning Comments: [facility] CALLED AND THEY ARE NOT COVERED BY PATIENT'S INSURANCE. [facility] IS COVERED BY INSURANCE FOR IV INFUSIONS, THEY ARE AWARE OF PATIENT AND WE WILL NEED TO FAX MED ORDER SHEET TO THEM AT [phone] AND THE OFFICE NUMBER IS [phone]. RECEIVED CALL FROM [facility] AND INSURANCE DOES NOT COVER THEM AND SAID [facility] DOES. I'M FAXING REFERRAL TO [facility] NOW. CM TO FOLLOW AND ASSIST NEEDED. Delivery Driver: Yesenia Pompa DCP- Discharge Planning Updated by [id number]: Yesenia Pompa on 10/05/19 12:[address] Patient Name: ANALIA MAYNARD Admission Status: ER Accout number: [id number] Admission Date: 10-02-2019 : 1950 Admission Diagnosis:DORSALGIA, UNSPECIFIED Attending: STEPHANIE PATTON Current LOS: 3 Anticipated DC Date: Planned Disposition: Home with Home Health and Infusion Serv Primary Insurance: [facility] MEDICARE SOLUTIONS Discharge Planning Comments: CM met with patient at bedside after explaining CM role and obtaining verbal consent. CM discussed availability / needs of home health, REHAB and medical equipment. WILL NEED HH AND 6-9 WEEKS OF IV ANTIBIOTICS. DAVID SIGNED FOR [facility]. FAXING FACE SHEET TO [facility] AND ANTICIPATE DISCHARGE SOON CULTURES ARE BACK. IMM SIGNED. Delivery Driver: Yesenia Pompa DCPIA - Discharge Planning Initial Assessment Updated by [id number]: Yesenia Pompa on 10/05/19 1:46 pm * Is the patient Alert and Oriented? Yes * PCP [facility] * Pharmacy [facility] * Preadmission Environment Home with Family * ADLs Independent * Community resources currently utilized None * Additional services required to return to the preadmission environment? Yes * Can the patient safely return to the preadmission environment? Yes * Has this patient been hospitalized within the prior 30 days at any hospital? No Coverage Notice Reviewer: [id number] Fercho Pompa Notice Issued Date-Time: 10/05/2019 13:52 Notice Type: IM Discharge Notice Notice Delivered To: Patient Relationship to Patient: Mirror Installer Name: Delivery Method: HAND - Hand Delivered Conchita Days: Prior Verbal Notification: Recipient Understood Notice: Yes Recipient Signature: Yes Med Rec Note Co-signed by Attending: Coverage Notice Comment: Reviewer: [id number] Fercho Pompa Notice Issued Date-Time: 10/05/2019 13:52 Notice Type: Patient Choice Letter Notice Delivered To: Patient Relationship to Patient: Mirror Installer Name: Delivery Method: HAND - Hand Delivered Conchita Days: Prior Verbal Notification: Recipient Understood Notice: Yes Recipient Signature: Yes Med Rec Note Co-signed by Attending: Coverage Notice Comment: [facility] Reviewer: [id number] - Yesenia Pompa Notice Issued Date-Time: 10/09/2019 16:33 Notice Type: IM Discharge Notice Notice Delivered To: Patient Relationship to Patient: Mirror Installer Name: Delivery Method: - Conchita Days: Prior Verbal Notification: Recipient Understood Notice: Recipient Signature: Med Rec Note Co-signed by Attending: Coverage Notice Comment: Last DP export: 10/09/19 1:35 pm Patient Name: ANALIA MAYNARD Page [phone] at 0926 All edits/amendments must be made on the electronic document DICTATION DATE: 10/11/19924 CARBON SETTER: MANJU 10/11/19924 RPT#: [id number] DC DATE:10/09/19 STATUS: DIS IN [facility] [address] [place] [address] END OF REPORT
== END 2019-10-09 09:45 | disposition home health service (06) | DRG 371 ==
LOC: D.ER 19:52 → D.MS 23:29
PROVIDERS: Emergency Medicine; Family Medicine; Specialist; ADMIT Emergency Medicine; ATTEND Emergency Medicine
PROC: 0K9N30Z Drainage of Right Hip Muscle with Drainage Device, Percutaneous Approach (ICD-10-PCS; principal; 2019-10-03 11:36)
DX: K68.12 Psoas muscle abscess (principal); K68.19 Other retroperitoneal abscess; M46.46 Discitis, unspecified, lumbar region; G89.29 Other chronic pain; F32.9 Major depressive disorder, single episode, unspecified; M45.9 Ankylosing spondylitis of unspecified sites in spine; M19.90 Unspecified osteoarthritis, unspecified site

== ENCOUNTER → 2019-10-16 11:42 | Outpatient (CLI) | payer MEDICARE ==
[2019-10-03 20:16] VITALS: BMI 24.8
[~2019-10-16 11:42] MED LIST changes: +ASCORBIC ACID500 MG PO; +MAG-OX 400 MG400 MG PO; +OMEGA-3100 MG PO; +TYLENOL W/CODEI1 TAB PO; +VITAMIN D5000 UNI1 PO
[2019-10-16 12:20] LABS: BASOPHILS 0.5 % (0-2); EOSINOPHILS 4.5 % (0-7); HEMATOCRIT 37.8 % (36.0-48.0); HEMOGLOBIN 11.9 g/dL (12-16); IMMATURE GRANULOCYTES 0.7 % (0-5); LYMPHOCYTES 19.9 % (15-50); MCH 30.5 pg (26.0-34.0); MCHC 31.5 g/dL (31.0-37.0); MCV 96.9 fL (80.0-100.0); MEAN PLATELET VOLUME 10.9 fL (7.4-10.4); NEUTROPHILS 61.4 % (40-80); PLATELET COUNT 349 10x3/uL (130-400); RDW 16.3 % (11.5-14.5); WBC 5.9 10x3/uL (4.8-10.8)
[2019-10-16 12:34] LABS: C-REACTIVE PROTEIN < 0.2 mg/dL (0.0-0.9); CREATININE - SERUM 0.9 mg/dL (0.6-1.3); UREA NITROGEN 11 mg/dL (7-18); VANCOMYCIN - TROUGH 17.6 ug/mL (10.0-20.0)
[2019-10-16 14:01] LABS: ERYTHROCYTE SEDIMENTATION RATE 47 mm/hr (0-30)
== END | disposition home or self-care (01) ==
LOC: D.LABREF 11:42
PROVIDERS: ATTEND Family Medicine
DX: K68.11 Postprocedural retroperitoneal abscess (principal)

== ENCOUNTER → 2019-10-23 14:27 | Outpatient (CLI) | payer MEDICARE ==
[2019-10-03 20:16] VITALS: BMI 24.8
[2019-10-23 15:31] LABS: BASOPHILS 0.6 % (0-2); EOSINOPHILS 3.9 % (0-7); HEMATOCRIT 39.6 % (36.0-48.0); HEMOGLOBIN 12.8 g/dL (12-16); IMMATURE GRANULOCYTES 0.5 % (0-5); LYMPHOCYTES 16.1 % (15-50); MCH 31.1 pg (26.0-34.0); MCHC 32.3 g/dL (31.0-37.0); MCV 96.1 fL (80.0-100.0); MONOCYTES 10.8 % (2-11); NEUTROPHILS 68.1 % (40-80); RBC 4.12 10x6/uL (4.00-5.40); RDW 16.2 % (11.5-14.5); WBC 6.4 10x3/uL (4.8-10.8)
[2019-10-23 15:46] LABS: PLATELET COUNT 213 10x3/uL (130-400)
[2019-10-23 16:14] LABS: C-REACTIVE PROTEIN < 0.2 mg/dL (0.0-0.9); CREATININE - SERUM 0.5 mg/dL (0.6-1.3); UREA NITROGEN 13 mg/dL (7-18); VANCOMYCIN - TROUGH 20.1 ug/mL (10.0-20.0)
[2019-10-23 17:01] LABS: ERYTHROCYTE SEDIMENTATION RATE 25 mm/hr (0-30)
== END | disposition home or self-care (01) ==
LOC: D.LABREF 14:27
PROVIDERS: ATTEND Family Medicine
DX: K68.11 Postprocedural retroperitoneal abscess (principal); M45.9 Ankylosing spondylitis of unspecified sites in spine; L03.115 Cellulitis of right lower limb; Z79.2 Long term (current) use of antibiotics

== ENCOUNTER → 2019-10-30 15:17 | Outpatient (CLI) | payer MEDICARE ==
[2019-10-03 20:16] VITALS: BMI 24.8
[2019-10-30 17:26] LABS: BASOPHILS 0.9 % (0-2); EOSINOPHILS 9.3 % (0-7); HEMATOCRIT 39.5 % (36.0-48.0); HEMOGLOBIN 12.5 g/dL (12-16); IMMATURE GRANULOCYTES 0.6 % (0-5); LYMPHOCYTES 19.2 % (15-50); MCH 30.9 pg (26.0-34.0); MCHC 31.6 g/dL (31.0-37.0); MCV 97.8 fL (80.0-100.0); MEAN PLATELET VOLUME 11.5 fL (7.4-10.4); MONOCYTES 11.8 % (2-11); NEUTROPHILS 58.2 % (40-80); PLATELET COUNT 209 10x3/uL (130-400); RBC 4.04 10x6/uL (4.00-5.40); RDW 15.8 % (11.5-14.5); WBC 6.4 10x3/uL (4.8-10.8)
[2019-10-30 17:39] LABS: C-REACTIVE PROTEIN < 0.2 mg/dL (0.0-0.9); CREATININE - SERUM 0.7 mg/dL (0.6-1.3); UREA NITROGEN 14 mg/dL (7-18); VANCOMYCIN - TROUGH 15.2 ug/mL (10.0-20.0)
[2019-10-30 18:37] LABS: ERYTHROCYTE SEDIMENTATION RATE 21 mm/hr (0-30)
== END | disposition home or self-care (01) ==
LOC: D.LABREF 15:17
PROVIDERS: ATTEND Family Medicine
DX: K68.19 Other retroperitoneal abscess (principal); M45.9 Ankylosing spondylitis of unspecified sites in spine; L03.115 Cellulitis of right lower limb; Z79.2 Long term (current) use of antibiotics

== ENCOUNTER → 2019-11-07 10:40 | Outpatient (CLI) | payer MEDICARE ==
[2019-10-03 20:16] VITALS: BMI 24.8
[2019-11-07 13:02] LABS: C-REACTIVE PROTEIN < 0.2 mg/dL (0.0-0.9); CREATININE - SERUM 0.7 mg/dL (0.6-1.3); UREA NITROGEN 11 mg/dL (7-18); VANCOMYCIN - TROUGH 13.9 ug/mL (10.0-20.0)
[2019-11-07 13:21] LABS: HEMATOCRIT 40.7 % (36.0-48.0); HEMOGLOBIN 13.6 g/dL (12-16); LYMPHOCYTES 20.6 % (15-50); MCH 31.9 pg (26.0-34.0); MCHC 33.4 g/dL (31.0-37.0); MCV 95.3 fL (80.0-100.0); MEAN PLATELET VOLUME 11.3 fL (7.4-10.4); PLATELET COUNT 171 10x3/uL (130-400); RBC 4.27 10x6/uL (4.00-5.40); WBC 6.1 10x3/uL (4.8-10.8)
[2019-11-07 14:27] LABS: ERYTHROCYTE SEDIMENTATION RATE 19 mm/hr (0-30)
== END | disposition home or self-care (01) ==
LOC: D.LABREF 10:40
PROVIDERS: ATTEND Family Medicine
DX: K68.19 Other retroperitoneal abscess (principal); M46.46 Discitis, unspecified, lumbar region; M45.9 Ankylosing spondylitis of unspecified sites in spine; Z79.2 Long term (current) use of antibiotics

== ENCOUNTER → 2019-11-13 13:54 | Outpatient (CLI) | payer MEDICARE ==
[2019-10-03 20:16] VITALS: BMI 24.8
[2019-11-13 14:36] LABS: BASOPHILS 0.5 % (0-2); EOSINOPHILS 6.5 % (0-7); HEMOGLOBIN 16.6 g/dL (12-16); IMMATURE GRANULOCYTES 0.5 % (0-5); LYMPHOCYTES 19.3 % (15-50); MCH 30.8 pg (26.0-34.0); MCHC 31.9 g/dL (31.0-37.0); MCV 96.5 fL (80.0-100.0); MONOCYTES 6.2 % (2-11); PLATELET COUNT 150 10x3/uL (130-400); RBC 5.39 10x6/uL (4.00-5.40); RDW 14.7 % (11.5-14.5); WBC 6.5 10x3/uL (4.8-10.8)
[2019-11-13 14:55] LABS: C-REACTIVE PROTEIN 1.1 mg/dL (0.0-0.9); CREATININE - SERUM 0.7 mg/dL (0.6-1.3); VANCOMYCIN - TROUGH 13.4 ug/mL (10.0-20.0)
[2019-11-13 17:01] LABS: ERYTHROCYTE SEDIMENTATION RATE 52 mm/hr (0-30)
== END | disposition home or self-care (01) ==
LOC: D.LABREF 13:54
PROVIDERS: ATTEND Family Medicine
DX: K68.19 Other retroperitoneal abscess (principal); Z79.2 Long term (current) use of antibiotics; M45.9 Ankylosing spondylitis of unspecified sites in spine; Z45.2 Encounter for adjustment and management of vascular access device

== ENCOUNTER → 2019-11-21 22:42 | Outpatient (CLI) | payer MEDICARE ==
[2019-10-03 20:16] VITALS: BMI 24.8
[2019-11-21 22:57] LABS: BASOPHILS 0.7 % (0-2); EOSINOPHILS 8.7 % (0-7); HEMATOCRIT 42.3 % (36.0-48.0); HEMOGLOBIN 13.5 g/dL (12-16); IMMATURE GRANULOCYTES 0.4 % (0-5); LYMPHOCYTES 16.5 % (15-50); MCH 31.5 pg (26.0-34.0); MCHC 31.9 g/dL (31.0-37.0); MCV 98.8 fL (80.0-100.0); MONOCYTES 11.2 % (2-11); NEUTROPHILS 62.5 % (40-80); RBC 4.28 10x6/uL (4.00-5.40); RDW 14.5 % (11.5-14.5); WBC 5.5 10x3/uL (4.8-10.8)
[2019-11-21 22:59] LABS: PLATELET COUNT 255 10x3/uL (130-400)
[2019-11-21 23:17] LABS: C-REACTIVE PROTEIN < 0.2 mg/dL (0.0-0.9); CREATININE - SERUM 0.8 mg/dL (0.6-1.3); UREA NITROGEN 10 mg/dL (7-18); VANCOMYCIN - TROUGH 13.8 ug/mL (10.0-20.0)
[2019-11-22 00:03] LABS: ERYTHROCYTE SEDIMENTATION RATE 5 mm/hr (0-30)
== END | disposition home or self-care (01) ==
LOC: D.LABREF 22:42
PROVIDERS: ATTEND Family Medicine
DX: K68.19 Other retroperitoneal abscess (principal); M46.46 Discitis, unspecified, lumbar region; Z79.2 Long term (current) use of antibiotics; M45.9 Ankylosing spondylitis of unspecified sites in spine

== ENCOUNTER → 2019-11-27 13:23 | Outpatient (CLI) | payer MEDICARE ==
[2019-10-03 20:16] VITALS: BMI 24.8
[2019-11-27 14:09] LABS: BASOPHILS 0.8 % (0-2); EOSINOPHILS 6.6 % (0-7); HEMATOCRIT 42.5 % (36.0-48.0); HEMOGLOBIN 13.9 g/dL (12-16); IMMATURE GRANULOCYTES 0.4 % (0-5); LYMPHOCYTES 18.4 % (15-50); MCH 31.4 pg (26.0-34.0); MCHC 32.7 g/dL (31.0-37.0); MCV 96.2 fL (80.0-100.0); MEAN PLATELET VOLUME 11.5 fL (7.4-10.4); MONOCYTES 12.2 % (2-11); NEUTROPHILS 61.6 % (40-80); PLATELET COUNT 247 10x3/uL (130-400); RBC 4.42 10x6/uL (4.00-5.40); RDW 13.9 % (11.5-14.5); WBC 5.2 10x3/uL (4.8-10.8)
[2019-11-27 14:10] LABS: C-REACTIVE PROTEIN < 0.2 mg/dL (0.0-0.9); CREATININE - SERUM 0.7 mg/dL (0.6-1.3); UREA NITROGEN 11 mg/dL (7-18); VANCOMYCIN - TROUGH 15.2 ug/mL (10.0-20.0)
[2019-11-27 15:28] LABS: ERYTHROCYTE SEDIMENTATION RATE 6 mm/hr (0-30)
== END | disposition home or self-care (01) ==
LOC: D.LABREF 13:23
PROVIDERS: ATTEND Family Medicine
DX: K68.19 Other retroperitoneal abscess (principal); Z79.2 Long term (current) use of antibiotics

== ENCOUNTER → 2019-12-05 19:24 | Outpatient (CLI) | payer MEDICARE ==
[2019-10-03 20:16] VITALS: BMI 24.8
[2019-12-05 19:33] LABS: BASOPHILS 0.3 % (0-2); EOSINOPHILS 7.2 % (0-7); HEMOGLOBIN 13.6 g/dL (12-16); IMMATURE GRANULOCYTES 0.5 % (0-5); LYMPHOCYTES 13.4 % (15-50); MCH 31.5 pg (26.0-34.0); MCHC 32.4 g/dL (31.0-37.0); MCV 97.2 fL (80.0-100.0); MEAN PLATELET VOLUME 11.9 fL (7.4-10.4); MONOCYTES 8.6 % (2-11); RBC 4.32 10x6/uL (4.00-5.40); RDW 13.9 % (11.5-14.5); WBC 6.3 10x3/uL (4.8-10.8)
[2019-12-05 19:40] LABS: PLATELET COUNT 193 10x3/uL (130-400)
[2019-12-05 19:57] LABS: C-REACTIVE PROTEIN 0.8 mg/dL (0.0-0.9); CREATININE - SERUM 0.9 mg/dL (0.6-1.3)
[2019-12-05 21:18] LABS: ERYTHROCYTE SEDIMENTATION RATE 2 mm/hr (0-30)
== END | disposition home or self-care (01) ==
LOC: D.LABREF 19:24
PROVIDERS: ATTEND Family Medicine
DX: K68.19 Other retroperitoneal abscess (principal)